=== PATIENT | female | born 1935 | race Caucasian/White ===

== ENCOUNTER 2017-07-08 06:35 | Inpatient (IN) | payer OTHER, MEDICARE ==
[2017-07-02 13:32] VITALS: BMI 28.2
--- NOTE | 2017-07-07 09:07 | HP ---
[facility] - Past Medical History Allergies/Adverse Reactions: Allergies Allergy/AdvReac Type Severity Reaction Status Date / Time Penicillins Allergy Rash Verified 07/02/17 13:39 Sulfa (Sulfonamide Allergy Rash Verified 07/02/17 13:39 Antibiotics) codeine AdvReac Vomiting Verified 07/02/17 13:39 - Current Medications Current Medications: Home Medications Medication Instructions Recorded Amlodipine Besylate 10 mg PO DAILY 07/02/17 Levothyroxine [Synthroid -] 100 mcg PO ASDIR 07/02/17 Montelukast Sodium [Singulair] 10 mg PO DAILY 07/02/17 Nebivolol HCl [Bystolic] 10 mg PO DAILY 07/02/17 Valsartan 160 mg PO DAILY 07/02/17
[2017-07-08] MEDS ORDERED: ePHEDrine SULFATE 50 MG/1 ML AMPULE ONE (06:39)
[2017-07-08] MEDS ORDERED: SUCCINYLCHOLINE CHLORIDE 200 MG/10 ML VIAL ONE (06:39)
[2017-07-08] MEDS ORDERED: ROCURONIUM BROMIDE 50 MG/5 ML VIAL ONE ×2 (06:39→09:54)
[2017-07-08] MEDS ORDERED: PHENYLEPHRINE HCL 10 MG/1 ML SINGLE DOSE VIAL ONE (06:40)
[2017-07-08] MEDS ORDERED: TRANEXAMIC ACID 1000 MG/10 ML VIAL IVPUSH ONE (06:56)
[2017-07-08] MEDS ORDERED: CEFAZOLIN 1 GM/D5W 1 GM/50 ML BAG IVPB ONE (06:56)
[2017-07-08] MEDS ORDERED: GABAPENTIN 300 MG CAPSULE (FP) PO ONE (06:56)
[2017-07-08] MEDS ORDERED: GABAPENTIN 300 MG CAPSULE (FP) ONE (07:22)
[2017-07-08] MEDS ORDERED: VANCOMYCIN 1,000 MG VIAL (RESTRICTED TO ID ONLY) ONE (07:38)
--- NOTE | 2017-07-08 08:03 | HP ---
Satellite [facility] - Chief Complaint Chief Complaint: right hip pain - Past Medical History Allergies/Adverse Reactions: Allergies Allergy/AdvReac Type Severity Reaction Status Date / Time Penicillins Allergy Rash Verified 07/02/17 13:39 Sulfa (Sulfonamide Allergy Rash Verified 07/02/17 13:39 Antibiotics) codeine AdvReac Vomiting Verified 07/02/17 13:39 - Current Medications Current Medications: Home Medications Medication Instructions Recorded Amlodipine Besylate 10 mg PO DAILY 07/02/17 Levothyroxine [Synthroid -] 100 mcg PO ASDIR 07/02/17 Montelukast Sodium [Singulair] 10 mg PO DAILY 07/02/17 Nebivolol HCl [Bystolic] 10 mg PO DAILY 07/02/17 Valsartan 160 mg PO DAILY 07/02/17 Satellite Physical Exam - Physical Examination Vital Signs: Vital Signs Period Temp Pulse Resp BP Sys/Gonzales Pulse Ox Last 24 Hr 98.3 F 78 18 138/72 General Appearance: Well Nourished, Well Developed, Alert & Oriented x3 ENT: Clear Lung: Normal air movement Heart: Regular rate & rhythm Extremities: Other (right hip - + ttp, dec rom, nvi xrays show grade 4 hip djd) Neurological: Intact, Alert, Oriented Satellite Impression/Plan - Impression/Plan Impression: right hip djd Operative Procedure: right chino thr Date to be Performed: 07/08/17
[2017-07-08] MEDS ORDERED: BUPIVACAINE HCL/PF (5 MG/ML) 30 ML VIAL IJ ONE (08:34)
[2017-07-08] MEDS ORDERED: MIDAZOLAM HCL 2 MG/2 ML SINGLE DOSE VIAL ONE (08:34)
[2017-07-08] MEDS ORDERED: DEXAMETHASONE SOD PHOSPHATE/PF 10 MG/ML SDV ONE (08:34)
[2017-07-08] MEDS ORDERED: PROPOFOL 20 ML ONE (09:35)
[2017-07-08] MEDS ORDERED: TRANEXAMIC ACID 1000 MG/10 ML VIAL ONE (09:36)
[2017-07-08] MEDS ORDERED: ONDANSETRON 4 MG/2 ML VIAL ONE (09:43)
[2017-07-08] MEDS ORDERED: DEXAMETHASONE SOD PHOSPHATE 4 MG/1 ML VIAL ONE (09:43)
[2017-07-08] MEDS ORDERED: ceFAZolin SODIUM 1 GM VIAL ONE ×2 (09:43→11:46)
[2017-07-08] MEDS ORDERED: SODIUM CHLORIDE 0.9% P/F 10 ML VIAL IJ ONE (09:43)
[2017-07-08] MEDS ORDERED: ONDANSETRON 4 MG/2 ML VIAL IVPUSH PRN ×2 (10:10→11:10)
[2017-07-08] MEDS ORDERED: LACTATED RINGERS SOLUTION 1,000 ML IV SCH ×3 (10:15→13:29)
[2017-07-08] MEDS ORDERED: VANCOMYCIN 1,000 MG VIAL (RESTRICTED TO ID ONLY) IVPB ONE (10:42)
[2017-07-08] MEDS ORDERED: NEOSTIGMINE METHYLSULFATE 0.5 MG/ML - 10 ML MDV ONE (10:47)
[2017-07-08] MEDS ORDERED: GLYCOPYRROLATE 0.2 MG/1 ML VIAL ONE (10:47)
[2017-07-08] MEDS ORDERED: MAGNESIUM HYDROX 2400MG/30ML ORAL SUSPENSION 30 ML CUP PO PRN (11:10)
[2017-07-08] MEDS ORDERED: MAG HYDROX/AL HYDROX/SIMETH 30 ML UNIT-DOSE CUP PO PRN (11:10)
--- NOTE | 2017-07-08 11:12 | OP ---
Operative Note - Note: Operative Date: 07/08/17 (magali) Pre-Operative Diagnosis: right hip djd Operation: right chino thr Post-Operative Diagnosis: Same as Pre-op Surgeon: Rishabh Sanchez Clay Pigeon Setter: Alberto Art Anesthesiologist/STATISTICS TEACHER: Akil Valiente Anesthesia: General, Spinal Specimens Removed: femoral head Estimated Blood Loss (mls): 200 Operative Report Dictated: Yes
[2017-07-08] MEDS: oxyCODONE HCL 5 MG TABLET PO PRN ×2 (11:50→14:06)
[2017-07-08] MEDS: ACETAMINOPHEN 325 MG TABLET (FP) PO SCH ×2 (11:50→18:03)
--- NOTE | 2017-07-08 13:58 | SPEC ---
DATE OF OPERATION: 07/08/2017 PREOPERATIVE DIAGNOSIS: Degenerative joint disease, right hip. POSTOPERATIVE DIAGNOSIS: Degenerative joint disease, right hip. PROCEDURE PERFORMED: Right total hip replacement with robotic-assisted navigation (MAKOplasty). SURGICAL ATTENDING: Rishabh Sanchez MD WOOD SETTER: LAURA Nolan ANESTHESIA: Regional and spinal. CLOSURE: A Adam total hip system with a 54 press-fit Tritanium acetabulum, an Accolade 2 size 8 femoral stem with a 036-mm head. ESTIMATED BLOOD LOSS: Less than 100 mL. COMPLICATIONS: None. CONDITION: To the recovery room in stable condition. DESCRIPTION OF PROCEDURE: The patient was taken to the operating room on July 08, 2017. General and regional anesthesia was administered by the anesthesiologist. IV Kefzol and TXA were administered prophylactically prior to the case. The patient was placed in the lateral decubitus position will all prominences well-padded. The right hip area was prepped and draped in the usual sterile fashion. Using 3 small stab incisions over the iliac crest, 3 threaded pins were drilled in power fashion through the 2 tables of the crest. These pins were fastened and the navigation array for the Constantin navigation system. Next, a 12 to 15-cm curved longitudinal incision over the posterolateral aspect of the greater trochanter was incised. Hemostasis was achieved with Bovie cautery. Sharp dissection was carried down to level of the fascia. The fascia was opened the entire length of the incision, spreading the fibers of the gluteus ian in the direction of origin. A Charnley retractor was placed in this layer. Care was taken not to impale the sciatic nerve. The short external rotators were detached off the insertion of the greater trochanter and peeled off the capsule. A posterior capsulotomy was then performed. A check point was malleted into the greater trochanter and a point on the inferior pole of the patella was obtained as well. These 2 points were used to assess the preoperative offset and limb lengths of the hip. The hip was then dislocated. The femoral neck was then osteotomized down to the appropriate level as directed by the navigation device. Anterior and posterior retractors were placed, exposing the acetabulum. A circumferential labral excision was performed. A check point was malleted into the acetabulum as well. Multiple sites inside the acetabulum and around the rim were utilized to register the acetabulum with the navigation device. An excellent registration of less than 0.5 mm was obtained. The hip was then reamed with the appropriate reamer down to the appropriate depth, with the appropriate orientation and version as assessed on our preoperative plan for this patient. The reamer was removed and the acetabulum was inspected to have good bleeding surfaces throughout. The real acetabular cup was then malleted down into place, with the holes in the appropriate position, until an excellent fixation was obtained. No screws were necessary. The navigation device ensured appropriate orientation and version, with the depth as predetermined. The appropriate liner was then clipped into place. Attention was directed to the femur. The proximal femur was prepared by use a box chisel, a canal finder and serial broaches until the broach achieved excellent rigidity in the proximal femur with the appropriate version being applied. A calcar planer was used to smooth off the calcar flush with the trial components. A trial reduction with the appropriate head was done, and the hip was reduced. The hip was taken through a range of motion from full extension with external rotation to marked flexion, and was stable at 90 degrees of flexion. It was stable to marked abduction and internal rotation, with a positive hang test and negative telescoping. Limb lengths were ascertained visually as well as with the navigation device to be within the targeted range for this patient. The trial component was removed. The real component was then malleted into place. The head was cold welded to the trunnion, and the hip was reduced. Range of motion, stability and limb lengths were as described in the trial component. Then the hip was pulse antibiotic irrigated. Vancomycin powder was placed in the hip joint. The capsule was closed. The fascia was then closed as well using number 1 Vicryl interrupted suture, 0 and 2-0 subcutaneous, and 3-0 V-Loc for the skin. 4-0 undyed Vicryl was used to close the pin sites after the pins were removed. All check points were also removed. Sterile Aquacel dressing was applied. The patient was awakened from anesthesia and transferred into the supine position. Bilateral SCDs and an abduction pillow were placed. X-rays revealed excellent position of the components. The patient was transferred to the recovery room in stable condition, with no complications. Estimated blood loss was less than 100 mL. Ziggy [id number]
[2017-07-08] MEDS: CEFAZOLIN 1 GM/D5W 1 GRAM/50 ML BAG IVPB SCH (18:03)
[2017-07-08] MEDS: GABAPENTIN 300 MG CAPSULE (FP) PO SCH (21:44)
[2017-07-08] MEDS: SENNOSIDES/DOCUSATE COMBO (SENNA PLUS) TABLET (UD) PO SCH (21:45)
[2017-07-09] MEDS: ACETAMINOPHEN 325 MG TABLET (FP) PO SCH ×4 (00:25→17:48)
[2017-07-09] MEDS: CEFAZOLIN 1 GM/D5W 1 GRAM/50 ML BAG IVPB SCH (01:23)
[2017-07-09] MEDS: oxyCODONE HCL 5 MG TABLET PO PRN ×3 (06:02→21:16)
[2017-07-09] MEDS: LEVOTHYROXINE NA 100 MCG TABLET (FP) PO SCH (06:02)
--- NOTE | 2017-07-09 07:45 | PN ---
Progress Note (short form) - Note Progress Note: Ortho Pt seen and examined s/p right chino thr pod #1 Selected Entries 07/09/17 05:04 Temperature 98.7 F Pulse Rate 75 Respiratory 20 Rate Blood Pressure 115/50 dressing c/d/i, calf soft, nt nvi cbc pending a/p PT hip precautions dvt ppx pain control d/c home tomorrow if stable
[2017-07-09 08:33] LABS: HEMATOCRIT 36.3 % (32.4-45.2); HEMOGLOBIN 11.9 GM/dl (10.7-15.3); MCH 28.8 pg (25.7-33.7); MCHC 32.6 g/dl (32.0-36.0); MEAN CELL VOLUME 88.2 fl (80-96); MEAN PLT VOLUME 9.8 fl (7.5-11.1); PLATELET COUNT 183 K/MM3 (134-434); RBC 4.12 M/mm3 (3.60-5.2); RDW 13.5 % (11.6-15.6); WHITE BLOOD COUNT 12.4 K/mm3 (4.0-10.8)
[2017-07-09] MEDS: ASPIRIN 325 MG TABLET PO SCH (08:51)
[2017-07-09] MEDS: PANTOPRAZOLE 40 MG TABLET (FP) PO SCH (09:42)
[2017-07-09] MEDS: VALSARTAN 160 MG TABLET (UD) PO SCH (09:42)
[2017-07-09] MEDS: MONTELUKAST NA 10 MG TABLET PO SCH (09:42)
[2017-07-09] MEDS: GABAPENTIN 300 MG CAPSULE (FP) PO SCH ×2 (09:42→21:15)
[2017-07-09] MEDS: NEBIVOLOL 10 MG TABLET (FP) PO SCH (09:43)
[2017-07-09] MEDS: MULTIVITAMINS (DAILY MVI) TABLET (FP) PO SCH (09:43)
[2017-07-09] MEDS: SENNOSIDES/DOCUSATE COMBO (SENNA PLUS) TABLET (UD) PO SCH ×2 (09:43→21:15)
[2017-07-09] MEDS: amLODIPine BESYLATE 10 MG TABLET (FP) PO SCH (09:43)
--- NOTE | 2017-07-09 12:07 | PN ---
Progress Note (short form) - Note Progress Note: 81F POD1 s/p right THR under spinal anesthetic with peripheral nerve blocks for post operative pain relief. Pt states that pain is well controlled, reports no anesthetic complications, sensory and motor function is intact in bilateral lower extremities.
[2017-07-10] MEDS: ACETAMINOPHEN 325 MG TABLET (FP) PO SCH ×3 (00:14→11:54)
[2017-07-10] MEDS: oxyCODONE HCL 5 MG TABLET PO PRN ×2 (03:51→09:54)
[2017-07-10] MEDS: LEVOTHYROXINE NA 100 MCG TABLET (FP) PO SCH (06:04)
[2017-07-10] MEDS ORDERED: ONDANSETRON 4 MG TABLET PO ONE (08:03)
--- NOTE | 2017-07-10 08:04 | DS ---
Physical Examination Vital Signs: Vital Signs Temperature 98.6 F 07/10/17 05:00 Pulse Rate 74 07/10/17 05:00 Respiratory Rate 19 07/10/17 05:00 Blood Pressure 174/80 07/10/17 05:00 O2 Sat by Pulse Oximetry (%) 98 07/09/17 21:00 Labs: CBC, BMP 07/09/17 08:20 Discharge Summary Reason For Visit: OSTEOARTHRITIS Procedures: Principal: s/p right thr Hospital Course: admitted for elective right chino thr, uneventful post-op, stable for d/c Condition: Good - Instructions Diet, Activity, Other Instructions: Post-op Instructions-Total Hip Replacement Call the office for a follow-up appointment in 1 week - [phone] Aspirin 325mg daily for 6 weeks. Pain medication was sent into your pharmacy. Apply Graduated Compression Stockings (TEDs) to both lower extremities- remove daily for hygiene ONLY Apply Sequential Compression Device (SCDs) to both Lower extremities remove for PT and hygiene ONLY Apply cold packs to affected area for 15 minutes every 2 hours. Physical Therapist will come to your home for the first 5 days. You will be set up with outpatient PT at your first post-operative visit. Patient may ambulate as tolerated-encourage self care (at least every 2-3 hours while awake) with walker or cane Maintain Aquacel (waterproof) dressing to operative wound (will be removed by surgeon at first office visit) Shower with Aquacel dressing in place-if Aquacel integrity compromised, remove and apply dry sterile dressing and notify Orthopedist. DO NOT SHOWER unless Orthopedists approves without Aquacel dressing CONTACT THE OFFICE FOR ANY CHANGE IN YOUR CONDITION (for example-fever greater than 102 degrees, excessive bleeding from operative site, purulent drainage, severe swelling or pain) GO TO THE EMERGENCY ROOM IF THERE IS A MEDICAL EMERGENCY Hip Precautions: * Keep a rolled towel under affected heel while in bed or chair (to keep knee in extension) * Dependent upon approach: * Posterior - do not cross legs; do not sit on low chairs or toilets. * If you have any questions, please do not hesitate to call the office - [phone]. Referrals: Rishabh Sanchez MD [Staff Physician] - Disposition: VNS/HOME HEALTH CARE - Home Medications Comprehensive Discharge Medication List: Ambulatory Orders Amlodipine Besylate 10 mg PO DAILY 07/02/17 Levothyroxine [Synthroid -] 100 mcg PO ASDIR 07/02/17 Montelukast Sodium [Singulair] 10 mg PO DAILY 07/02/17 Nebivolol HCl [Bystolic] 10 mg PO DAILY 07/02/17 Valsartan 160 mg PO DAILY 07/02/17 Aspirin [ASA -] 325 mg PO DAILY@0800 tablet 07/08/17 Oxycodone HCl/Acetaminophen [Percocet 5-325 mg Tablet] 1 - 2 tab PO Q6H #50 tab MDD 8 07/08/17
--- NOTE | 2017-07-10 08:04 | PN ---
Progress Note (short form) - Note Progress Note: Ortho Pt seen and examined s/p right chino thr pod #2 Selected Entries 07/10/17 05:00 Temperature 98.6 F Pulse Rate 74 Respiratory 19 Rate Blood Pressure 174/80 Laboratory Tests 07/09/17 08:20 WBC 12.4 H Hgb 11.9 Hct 36.3 Plt Count 183 dressing c/d/i, calf soft, nt nvi a/p PT hip precautions dvt ppx pain control d/c home today f/u in 1 week
[2017-07-10 08:47] LABS: HEMATOCRIT 33.9 % (32.4-45.2); HEMOGLOBIN 11.6 GM/dl (10.7-15.3); MCH 30.2 pg (25.7-33.7); MCHC 34.2 g/dl (32.0-36.0); MEAN CELL VOLUME 88.5 fl (80-96); MEAN PLT VOLUME 9.7 fl (7.5-11.1); PLATELET COUNT 149 K/MM3 (134-434); RBC 3.83 M/mm3 (3.60-5.2); RDW 13.8 % (11.6-15.6); WHITE BLOOD COUNT 10.6 K/mm3 (4.0-10.8)
[2017-07-10] MEDS: ASPIRIN 325 MG TABLET PO SCH (08:54)
[2017-07-10 09:23] VITALS: TEMP 98.1
[2017-07-10] MEDS: SENNOSIDES/DOCUSATE COMBO (SENNA PLUS) TABLET (UD) PO SCH (09:46)
[2017-07-10] MEDS: MULTIVITAMINS (DAILY MVI) TABLET (FP) PO SCH (09:46)
[2017-07-10] MEDS: MONTELUKAST NA 10 MG TABLET PO SCH (09:46)
[2017-07-10] MEDS: PANTOPRAZOLE 40 MG TABLET (FP) PO SCH (09:46)
[2017-07-10] MEDS: GABAPENTIN 300 MG CAPSULE (FP) PO SCH (09:47)
[2017-07-10 11:54] VITALS: BP 105/45; PULSE 65
[2017-07-10] MEDS: NEBIVOLOL 10 MG TABLET (FP) PO SCH (11:54)
[2017-07-10] MEDS: VALSARTAN 160 MG TABLET (UD) PO SCH (11:54)
[2017-07-10] MEDS: amLODIPine BESYLATE 10 MG TABLET (FP) PO SCH (11:55)
--- NOTE | 2017-07-15 16:28 | PATH ---
Surgical Pathology Report Patient Name: JITENDRA JIMENEZ Med. Rec. #: [id number] /Age/Gender: 1935 (Age: 81) / F Account: [id number] Location: [facility] Taken: 07/08/2017 Received: 07/08/2017 Reported: 07/15/2017 Physicians: Rishabh Sanchez M.D. Specimen(s) Received RIGHT FEMORAL HEAD Clinical History Right hip osteoarthritis Final Diagnosis FEMORAL HEAD, RIGHT, TOTAL HIP REPLACEMENT: DEGENERATIVE JOINT DISEASE. Electronically Signed Karli Baker M.D. Gross Description Received in formalin, labeled "right femoral head," is a 4.6 x 4.6 x 4.3 cm. femoral head with a 1.5 cm in length portion of femoral neck attached. The margin of resection is smooth. There is a 4.1 cm in greatest dimension area of eburnation present. The remaining articular surface is luna-yellow and diffusely granular. The underlying trabecular bone is yellow and hard. A sales representative electric service section is submitted in one cassette, following decalcification. /07/09/2017 merged with [facility]07/09/2017
== END 2017-07-10 15:00 | disposition home health service (06) | DRG 470 ==
LOC: FM/S 06:35
PROVIDERS: ADMIT Orthopaedic Surgery; ATTEND Orthopaedic Surgery
PROC: 8E0Y0CZ Robotic Assisted Procedure of Lower Extremity, Open Approach (ICD-10-PCS; 2017-07-08)
PROC: 0SR902Z Replacement of Right Hip Joint with Metal on Polyethylene Synthetic Substitute, Open Approach (ICD-10-PCS; principal; 2017-07-08 09:30)
DX: M16.11 Unilateral primary osteoarthritis, right hip (principal); I10 Essential (primary) hypertension
CPT/HCPCS: 36415; 73502-TC-RT; 85027; 94010; 94760; 97116-GP; 97162-GP

== ENCOUNTER 2017-07-15 13:12 | Inpatient (IN) | payer OTHER, MEDICARE ==
[2017-07-15] MEDS ORDERED: morphine CARPU-JECT 4 MG/1 ML DISP.SYRIN IVPUSH ONE ×4 (13:51→19:02)
[2017-07-15] MEDS ORDERED: SODIUM CHLORIDE 0.9% 1000 ML INFUS.BAG IV ONE (13:51)
[2017-07-15] MEDS ORDERED: morphine CARPU-JECT 2 MG/1 ML DISP.SYRIN ONE ×3 (14:03→16:54)
--- NOTE | 2017-07-15 14:19 | PDOC ---
Attending Attestation - Resident Resident Name: PablojonathonNaeem - ED Attending Attestation I have performed the following: I have examined & evaluated the patient, The case was reviewed & discussed with the resident, I agree w/resident's findings & plan, Exceptions are as noted - HPI HPI: 07/15/17 14:16 81-year-old female postop day 7 right hip replacement secondary to arthritis, uncomplicated and with good postop recovery initially now sent to ED for progressive pain and decreased range of motion of her right hip is going home about 5 days ago. No fevers or chills, no new injuries, has noticed bruising to the right leg but no redness or pus. Taking Percocet as prescribed for pain. - Physicial Exam PE: 07/15/17 14:17 Afebrile. Well-appearing and hemodynamically stable. Abdomen is benign Right hip: Surgical incision sites are clean/dry/intact without drainage or erythema or dehiscence. There is bruising and soft tissue swelling to the right leg that extends to the right knee, there is very limited active or passive range of motion secondary to pain, neurovascularly intact distally. - Medical Decision Making 07/15/17 14:18 Patient seen and evaluated with the resident. I agree with the overall evaluation, assessment, and management with the following summary of visit: 81-year-old female with worsening right hip pain and immobility following right hip surgery one week ago. Question bleed versus collection plus or minus infection. Labs X-ray, right lower extremity Doppler Likely will need CT head Dr. Sanchez aware, admission
[2017-07-15 14:52] LABS: BASO % 0.7 % (0-2.0); EOS % 0.3 % (0-4.5); HEMATOCRIT 35.7 % (32.4-45.2); HEMOGLOBIN 11.9 GM/dl (10.7-15.3); LYMPH % 11.1 % (8-40); MCH 28.9 pg (25.7-33.7); MCHC 33.2 g/dl (32.0-36.0); MEAN PLT VOLUME 8.6 fl (7.5-11.1); MONO % 7.1 % (3.8-10.2); NEUT % 80.8 % (42.8-82.8); PLATELET COUNT 272 K/MM3 (134-434); RDW 13.5 % (11.6-15.6); WHITE BLOOD COUNT 12.3 K/mm3 (4.0-10.8)
--- NOTE | 2017-07-15 14:58 | PDOC ---
History of Present Illness <Noemi Ramirez - Last Filed: 07/15/17 15:28> - General History Source: Patient, Family Exam Limitations: No Limitations - History of Present Illness Initial Comments: 07/15/17 14:20 The patient is an 81F with a PMH of HTN who is s/p R total hip replacement who presents with R hip pain. The patient states that she had her operation on Jul 08. She was discharged on the and felt great. On the , she began to have mild R hip pain. She says that this hip pain has progressed until her presentation today and is now radiating to her knee. She states that she is no longer able to ambulate and cannot move her R leg. She is also complaining of bruising on the back of her R knee. She denies any complaints of fevers, chills, CP, SOB. <Naeem Bernal - Last Filed: 07/15/17 17:36> - General Chief Complaint: Pain Stated Complaint: RT HIP PAIN S/P SURGERY Time Seen by Provider: 07/15/17 13:30 Past History <Noemi Ramirez - Last Filed: 07/15/17 15:28> - Past Medical History Anemia: No Asthma: (TAKING SINGULAIR FOR YEARS R/T ALLERGIC COUGH,NO ASTHMA DX) Cancer: No Cardiac Disorders: Yes (murmur) CVA: No COPD: No CHF: No Dementia: No Diabetes: No GI Disorders: No Disorders: No HTN: Yes Hypercholesterolemia: No Liver Disease: No Seizures: No Thyroid Disease: Yes - Surgical History Abdominal Surgery: No Appendectomy: No Cardiac Surgery: No Cholecystectomy: No Lung Surgery: No Neurologic Surgery: No Orthopedic Surgery: No - Suicide/Smoking/Psychosocial Hx Smoking History: Unknown if ever smoked Hx Alcohol Use: No Drug/Substance Use Hx: No <Naeem Bernal - Last Filed: 07/15/17 17:36> - Past Medical History Allergies/Adverse Reactions: Allergies Allergy/AdvReac Type Severity Reaction Status Date / Time Penicillins Allergy Rash Verified 07/02/17 13:39 Sulfa (Sulfonamide Allergy Rash Verified 07/02/17 13:39 Antibiotics) codeine AdvReac Vomiting Verified 07/02/17 13:39 Home Medications: Ambulatory Orders Amlodipine Besylate 10 mg PO DAILY 07/02/17 Levothyroxine [Synthroid -] 100 mcg PO ASDIR 07/02/17 Montelukast Sodium [Singulair] 10 mg PO DAILY 07/02/17 Nebivolol HCl [Bystolic] 10 mg PO DAILY 07/02/17 Valsartan 160 mg PO DAILY 07/02/17 Aspirin [ASA -] 325 mg PO DAILY@0800 tablet 07/08/17 Oxycodone HCl/Acetaminophen [Percocet 5-325 mg Tablet] 1 - 2 tab PO Q6H #50 tab MDD 8 07/08/17 Review of Systems - Review of Systems Able to Perform ROS?: Yes Comments:: 07/15/17 15:09 GENERAL/CONSTITUTIONAL: No fever or chills. No weakness. HEAD, EYES, EARS, NOSE AND THROAT: No change in vision. No ear pain or discharge. No sore throat. CARDIOVASCULAR: No chest pain, palpitations, or lightheadedness. RESPIRATORY: No cough, wheezing, shortness of breath, or hemoptysis. GASTROINTESTINAL: No nausea, vomiting, diarrhea, constipation, or abdominal pain. GENITOURINARY: No dysuria, frequency, hematuria, or change in urination. MUSCULOSKELETAL: Positive for R hip pain. No neck or back pain. SKIN: No rash or lesions. NEUROLOGIC: No headache, numbness, tingling, weakness, loss of consciousness, or change in strength/sensation. ENDOCRINE: No increased thirst. No abnormal weight change. HEMATOLOGIC/LYMPHATIC: No anemia, easy bleeding, or history of blood clots. ALLERGIC/IMMUNOLOGIC: No hives or skin allergy. Is the patient limited Urdu proficient: No <Naeem Bernal - Last Filed: 07/15/17 17:36> *Physical Exam - Vital Signs Last Vital Signs Temp Pulse Resp BP Pulse Ox 97.8 F 71 18 160/87 96 07/15/17 13:12 07/15/17 13:12 07/15/17 13:12 07/15/17 13:12 07/15/17 13:12 <Noemi Ramirez - Last Filed: 07/15/17 15:28> - Vital Signs Last Vital Signs Temp Pulse Resp BP Pulse Ox 97.8 F 71 18 160/87 96 07/15/17 13:12 07/15/17 13:12 07/15/17 13:12 07/15/17 13:12 07/15/17 13:12 - Physical Exam Comments: 07/15/17 15:10 GENERAL: Well developed, well nourished. Awake and alert. No acute distress. HEENT: Normocephalic, atraumatic. Hearing grossly normal. Moist mucous membranes. PERRLA, EOMI. No conjunctival pallor. Sclera are non-icteric. NECK: Supple. Full ROM. No JVD. CARDIOVASCULAR: Regular rate and rhythm. No murmurs, rubs, or gallops. Distal pulses are 2+ and symmetric. PULMONARY: No evidence of respiratory distress. Lungs clear to auscultation bilaterally. No wheezing, rales or rhonchi. ABDOMINAL: Soft. Non-tender. Non-distended. No rebound or guarding. No organomegaly. Normoactive bowel sounds. MUSCULOSKELETAL: Limited active and passive ROM in R hip. No tenderness to palpation. Bruising over posterior R knee. No bony deformities or tenderness. EXTREMITIES: No cyanosis. No clubbing. No edema. No calf tenderness. SKIN: Warm and dry. Normal capillary refill. No rashes. No jaundice. NEUROLOGICAL: Alert, awake, appropriate. Cranial nerves 2-12 intact. Normal speech. PSYCHIATRIC: Cooperative. Good eye contact. Appropriate mood and affect. <Naeem Bernal - Last Filed: 07/15/17 17:36> ED Treatment Course - LABORATORY CBC & Chemistry Diagram: 07/15/17 14:30 07/15/17 14:30 - ADDITIONAL ORDERS Additional order review: Laboratory Results 07/15/17 14:30 PT with INR 12.4 INR 1.11 07/15/17 14:30 RBC 4.10 MCV 87.0 MCHC 33.2 RDW 13.5 MPV 8.6 Neutrophils % 80.8 Lymphocytes % 11.1 Monocytes % 7.1 Eosinophils % 0.3 Basophils % 0.7 - RADIOLOGY Radiograph Interpretation: 07/15/17 15:28 RLE Dopper venous US Impression: There is no evidence of deep vein thromboses in the right lower extremity. Note is made of calcified plaques in the right common femoral and likely proximal superficial femoral vein. Soft tissue swelling in the right leg. Reported by: Nieves Agrawal MD 07/15/17 1511 - Medications Given in the ED: ED Medications Discontinued Medications Generic Name Dose Route Start Last Admin Trade Name Freq PRN Reason Stop Dose Admin Morphine Sulfate 2 mg 07/15/17 13:51 07/15/17 14:08 Morphine Injection - IVPUSH 07/15/17 13:52 2 mg ONCE ONE Administration Sodium Chloride 1,000 ml 07/15/17 13:51 07/15/17 14:15 Normal Saline - IV 07/15/17 13:52 1,000 ml ONCE ONE Administration <Noemi Ramirez - Last Filed: 07/15/17 15:28> - LABORATORY CBC & Chemistry Diagram: 07/15/17 14:30 07/15/17 14:30 - RADIOLOGY Radiology Studies Ordered: Category Date Time Status HIP & PELVIS-RIGHT [RAD] Stat Radiology 07/15/17 13:45 Ordered - Medications Given in the ED: ED Medications Discontinued Medications Generic Name Dose Route Start Last Admin Trade Name Freq PRN Reason Stop Dose Admin Morphine Sulfate 2 mg 07/15/17 13:51 07/15/17 14:08 Morphine Injection - IVPUSH 07/15/17 13:52 2 mg ONCE ONE Administration <Naeem Bernal - Last Filed: 07/15/17 17:36> Medical Decision Making - Medical Decision Making 07/15/17 15:11 The patient is an 81F with a PMH of HTN who is s/p R total hip who presents to the ER with complaints of R knee pain. I am concerned for a hematoma in the R hip area. The area does not look infected, the surgical site looks clean, and the patient is not complaining about any fevers or chills so I have a lower index of suspicion for an infectious process. Will order labs and imaging and reassess patient. 07/15/17 15:23 US Read: There is no evidence of deep venous thromboses in the right lower extremity. Note is made of calcified plaques in the right common femoral and likely proximal superficial femoral vein. Soft tissue swelling in the right leg. Pending CMP and XR. 07/15/17 16:33 CMP WNL. Hip XR negative. I have informed Alberto SANCHEZ (Dr. Sanchez) of results. Cell is [phone]. Wants admission with consultation. 07/15/17 17:36 Jonatan CELLOPHANER accepts admission under Dr. Mcmillan. <Naeem Bernal - Last Filed: 07/15/17 17:36> *DC/Admit/Observation/Transfer <Noemi Ramirez - Last Filed: 07/15/17 15:28> - Discharge Dispostion Admit: Yes <Naeem Bernal - Last Filed: 07/15/17 17:36> Diagnosis at time of Disposition: Hip pain Qualifiers: Laterality: right Qualified Code(s): M25.551 - Pain in right hip - Discharge Dispostion Condition at time of disposition: Stable
[2017-07-15 15:23] LABS: INR 1.11 (0.82-1.09); PROTHROMBIN TIME (PATIENT) 12.4 SEC (10.2-13.0)
[2017-07-15 15:27] LABS: ALBUMIN 2.9 g/dl (3.5-5.0); ALK PHOS 67 U/L (32-92); ANION GAP 11 (8-16); BILIRUBIN,TOTAL 0.7 mg/dl (0.2-1.0); BLOOD UREA NITROGEN 14 mg/dl (7-18); CALCIUM 8.7 mg/dl (8.4-10.2); CHLORIDE 97 mmol/L (98-107); CO2 28 mmol/L (22-28); CREATININE 0.7 mg/dl (0.6-1.3); GLUCOSE,RANDOM 104 mg/dl (74-106); POTASSIUM 3.7 mmol/L (3.5-5.1); SGOT/AST 29 U/L (10-42); SGPT/ALT 32 U/L (10-40); SODIUM 136 mmol/L (136-145); TOT PROT 5.9 g/dl (6.4-8.3)
--- NOTE | 2017-07-15 18:42 | CON.ORTH ---
Consult Reason for Consultation:: right hip pain s/p thr - Alcohol/Substance Use Hx Alcohol Use: No - Smoking History Smoking history: Unknown if ever smoked Home Medications - Allergies Allergies/Adverse Reactions: Allergies Allergy/AdvReac Type Severity Reaction Status Date / Time Penicillins Allergy Rash Verified 07/02/17 13:39 Sulfa (Sulfonamide Allergy Rash Verified 07/02/17 13:39 Antibiotics) codeine AdvReac Vomiting Verified 07/02/17 13:39 - Home Medications Home Medications: Ambulatory Orders Amlodipine Besylate 10 mg PO DAILY 07/02/17 Levothyroxine [Synthroid -] 100 mcg PO ASDIR 07/02/17 Montelukast Sodium [Singulair] 10 mg PO DAILY 07/02/17 Nebivolol HCl [Bystolic] 10 mg PO DAILY 07/02/17 Valsartan 160 mg PO DAILY 07/02/17 Aspirin [ASA -] 325 mg PO DAILY@0800 tablet 07/08/17 Oxycodone HCl/Acetaminophen [Percocet 5-325 mg Tablet] 1 - 2 tab PO Q6H #50 tab MDD 8 07/08/17 Physical Exam for Ortho Vital Signs: Vital Signs Temperature 97.8 F 07/15/17 13:12 Pulse Rate 71 07/15/17 13:12 Respiratory Rate 18 07/15/17 13:12 Blood Pressure 160/87 07/15/17 13:12 O2 Sat by Pulse Oximetry (%) 96 07/15/17 13:12 Wound/Incision: Yes: Clean/Dry, Well Approximated Labs: CBC, BMP 07/15/17 14:30 07/15/17 14:30 INR, PTT INR 1.11 (0.82-1.09) 07/15/17 14:30 - Lower Extremity Hip: Yes: Right, Decreased ROM, Pain, Swelling, Other (nvi) Imaging - Results X-ray: Report Reviewed, Image Reviewed Cat Scan: Report Reviewed, Image Reviewed Assessment/Plan 81F with a PMH of HTN who is s/p R total hip replacement who presents with R hip pain. The patient states that she had her operation on Jul 08. She was discharged on the and felt great. On the , she began to have mild R hip pain. She says that this hip pain has progressed until her presentation today and is now radiating to her knee. She states that she is no longer able to ambulate and cannot move her R leg. She is also complaining of bruising on the back of her R knee. She denies any complaints of fevers, chills, CP, SOB. a/p- right periprosthetic proximal femur fx Risks and benefits were d/w pt and daughters will need to be taken to OR for orif d/w Dr. Sanchez OR Friday NPO after midnight on hold ASA
[2017-07-15] MEDS ORDERED: morphine SULFATE 4 MG/ML VIAL ONE (19:02)
--- NOTE | 2017-07-15 20:00 | HP ---
CHIEF COMPLAINT: Right Hip Pain PCP: HISTORY OF PRESENT ILLNESS: This is a 81 y/o woman s/p right hip replacement (07/08/17). Who presents to the ED with right hip pain, non weight bearing. Patient reports since her surgery on 07/08, d/cd on 07/10. Patient reports having increased pain to her hip on 07/11 and it became progressively worse. She now reports being unable to ambulate and increased swelling to her right leg. ER course was notable for: (1) WBC 12.3 (2) Doppler RLE- neg DVT (3) Recent Travel: None PAST MEDICAL HISTORY: HTN Hypothyroid PAST SURGICAL HISTORY: s/p R- Hip Replacement Social History: Smoking: Never Alcohol: None Drugs: None Family History: Non-contributory Allergies Penicillins Allergy (Verified 07/02/17 13:39) Rash Sulfa (Sulfonamide Antibiotics) Allergy (Verified 07/02/17 13:39) Rash codeine Adverse Reaction (Verified 07/02/17 13:39) Vomiting HOME MEDICATIONS: Home Medications Medication Instructions Recorded Amlodipine Besylate 10 mg PO DAILY 07/02/17 Levothyroxine [Synthroid -] 100 mcg PO ASDIR 07/02/17 Montelukast Sodium [Singulair] 10 mg PO DAILY 07/02/17 Nebivolol HCl [Bystolic] 10 mg PO DAILY 07/02/17 Valsartan 160 mg PO DAILY 07/02/17 Aspirin [ASA -] 325 mg PO DAILY@0800 tablet 07/08/17 Oxycodone HCl/Acetaminophen 1 - 2 tab PO Q6H #50 tab MDD 8 07/08/17 [Percocet 5-325 mg Tablet] REVIEW OF SYSTEMS CONSTITUTIONAL: Absent: fever, chills, diaphoresis, generalized weakness, malaise, loss of appetite, weight change HEENT: Absent: rhinorrhea, nasal congestion, throat pain, throat swelling, difficulty swallowing, mouth swelling, ear pain, eye pain, visual changes CARDIOVASCULAR: Absent: chest pain, syncope, palpitations, irregular heart rate, lightheadedness , peripheral edema RESPIRATORY: Absent: cough, shortness of breath, dyspnea with exertion, orthopnea, wheezing, stridor, hemoptysis GASTROINTESTINAL: Absent: abdominal pain, abdominal distension, nausea, vomiting, diarrhea, constipation, melena, hematochezia GENITOURINARY: Absent: dysuria, frequency, urgency, hesitancy, hematuria, flank pain, genital pain MUSCULOSKELETAL: arthralgia, joint swelling, right knee pain Absent: myalgia, back pain, neck pain SKIN: Absent: rash, itching, pallor HEMATOLOGIC/IMMUNOLOGIC: Absent: easy bleeding, easy bruising, lymphadenopathy, frequent infections ENDOCRINE: Absent: unexplained weight gain, unexplained weight loss, heat intolerance, cold intolerance NEUROLOGIC: Absent: headache, focal weakness or paresthesias, dizziness, unsteady gait, seizure, mental status changes, bladder or bowel incontinence PSYCHIATRIC: Absent: anxiety, depression, suicidal or homicidal ideation, hallucinations. PHYSICAL EXAMINATION Vital Signs - 24 hr 07/15/17 13:12 Temperature 97.8 F Pulse Rate 71 Respiratory 18 Rate Blood Pressure 160/87 O2 Sat by Pulse 96 Oximetry (%) GENERAL: Awake, alert, and fully oriented, in no acute distress. HEAD: Normal with no signs of trauma. EYES: Pupils equal, round and reactive to light, extraocular movements intact, sclera anicteric, conjunctiva clear. No lid lag. EARS, NOSE, THROAT: Ears normal, nares patent, oropharynx clear without exudates. Moist mucous membranes. NECK: Normal range of motion, supple without lymphadenopathy, JVD, or masses. LUNGS: Breath sounds equal, clear to auscultation bilaterally. No wheezes, and no crackles. No accessory muscle use. HEART: Regular rate and rhythm, normal S1 and S2 without murmur, rub or gallop. ABDOMEN: Soft, nontender, not distended, normoactive bowel sounds, no guarding, no rebound, no masses. No hepatomegaly or splenomegaly. MUSCULOSKELETAL: Normal range of motion at all joints. No bony deformities. R- hip tenderness. No CVA tenderness. UPPER EXTREMITIES: 2+ pulses, warm, well-perfused. No cyanosis. No clubbing. No peripheral edema. LOWER EXTREMITIES: 2+ pulses, warm, well-perfused. No calf tenderness. No peripheral edema. NEUROLOGICAL: Cranial nerves II-XII intact. Normal speech. Gait not observed. PSYCHIATRIC: Cooperative. Good eye contact. Appropriate mood and affect. SKIN: Warm, dry, normal turgor, no rashes or lesions noted, normal capillary refill. Laboratory Results - last 24 hr 07/15/17 07/15/17 07/15/17 13:50 14:30 14:30 WBC 12.3 H RBC 4.10 Hgb 11.9 Hct 35.7 MCV 87.0 MCH 28.9 MCHC 33.2 RDW 13.5 Plt Count 272 MPV 8.6 Neutrophils % 80.8 Lymphocytes % 11.1 Monocytes % 7.1 Eosinophils % 0.3 Basophils % 0.7 PT with INR INR PTT (Actin FS) 23.7 L Sodium 136 Potassium 3.7 Chloride 97 L Carbon Dioxide 28 Anion Gap 11 BUN 14 Creatinine 0.7 Creat Clearance w eGFR > 60 Random Glucose 104 Calcium 8.7 Total Bilirubin 0.7 AST 29 ALT 32 Alkaline Phosphatase 67 Creatine Kinase Troponin I Total Protein 5.9 L Albumin 2.9 L Blood Type Antibody Screen 07/15/17 07/15/17 07/15/17 14:30 14:30 14:30 WBC RBC Hgb Hct MCV MCH MCHC RDW Plt Count MPV Neutrophils % Lymphocytes % Monocytes % Eosinophils % Basophils % PT with INR 12.4 INR 1.11 PTT (Actin FS) Sodium Potassium Chloride Carbon Dioxide Anion Gap BUN Creatinine Creat Clearance w eGFR Random Glucose Calcium Total Bilirubin AST ALT Alkaline Phosphatase Creatine Kinase 54 Troponin I < 0.02 Total Protein Albumin Blood Type A POSITIVE Antibody Screen Negative ASSESSMENT/PLAN: 81 y/o woman with a PMHx of: HTN, Hypothyroid, s/p R- hip replacement Admitted to [facility] for R- Hip Pain Plan: 1. R- Hip Pain - s/p R-THR - Ortho following- OR on Friday for ORIF - CT Hip- - Morphine Sulfate prn - Bedrest - Hold Asa secondary to pending surgery - NPO after midnight - SCDs - Monitor vitals 2. Leukocytosis - Likely secondary to stress (recent surgery) vs inflammation (right knee swelling) - Monitor CBC - Monitor vitals 3. Hypertension - Controlled - Monitor BP - Continue Norvasc, Bystolic, Valsartan - Monitor renal function 4. Hypothyroid - Continue Levothyroxine - TSH in am 5. FEN - PO Fluids - Replete lytes prn - Low Na diet 6. 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 - New Patient This patient is new to me today: Yes Date on this admission: 07/15/17 - Critical Care Critical Care patient: No
[2017-07-15 21:22] VITALS: BMI 31.4
[2017-07-15] MEDS: MONTELUKAST NA 10 MG TABLET PO SCH (22:19)
[2017-07-15] MEDS: DOCUSATE SODIUM 100 MG CAPSULE (FP) PO SCH (22:23)
[2017-07-15] MEDS: morphine CARPU-JECT 2 MG/1 ML DISP.SYRIN IVPUSH PRN (22:28)
[2017-07-16] MEDS: LEVOTHYROXINE NA 100 MCG TABLET (FP) PO SCH (06:29)
[2017-07-16 08:53] LABS: BASO % 0.2 % (0-2.0); EOS % 0.4 % (0-4.5); HEMATOCRIT 32.9 % (32.4-45.2); HEMOGLOBIN 10.8 GM/dl (10.7-15.3); LYMPH % 11.3 % (8-40); MCH 28.8 pg (25.7-33.7); MCHC 32.7 g/dl (32.0-36.0); MEAN CELL VOLUME 88.1 fl (80-96); MEAN PLT VOLUME 8.4 fl (7.5-11.1); MONO % 9.1 % (3.8-10.2); PLATELET COUNT 289 K/MM3 (134-434); RBC 3.73 M/mm3 (3.60-5.2); RDW 13.4 % (11.6-15.6); WHITE BLOOD COUNT 11.4 K/mm3 (4.0-10.8)
--- NOTE | 2017-07-16 10:14 | PN ---
Physical Exam: SUBJECTIVE: Patient seen and examined, reports pain to right lower extremity OBJECTIVE: patient is a 81 y/o female, with a past medical history of HTN, Hypothyroid, s/p right THR 07/08/17, admitted from the emergency department for righ acetabular fracture. Vital Signs Period Temp Pulse Resp BP Sys/Gonzales Pulse Ox Last 24 Hr 97.8 F-99.6 F 71-97 16-19 143-160/63-87 95-96 GENERAL: The patient is awake, alert, and fully oriented, in no acute distress. HEAD: Normal with no signs of trauma. EYES: PERRL, extraocular movements intact, sclera anicteric, cataract to left eye, conjunctiva clear. No ptosis. ENT: Ears normal, nares patent, oropharynx clear without exudates, moist mucous membranes. NECK: Trachea midline, full range of motion, supple. LUNGS: Breath sounds equal, clear to auscultation bilaterally, no wheezes, no crackles, no accessory muscle use. HEART: Regular rate and rhythm, S1, S2 without murmur, rub or gallop. ABDOMEN: Soft, nontender, nondistended, normoactive bowel sounds, no guarding, no rebound, no hepatosplenomegaly, no masses. EXTREMITIES: 2+ pulses, warm, well-perfused, no edema. RIGHT LOWER EXTREMITY: point tenderness to the right anterior hip, less than 3 second capillary refill, +3 pedal pulse NEUROLOGICAL: Cranial nerves II through XII grossly intact. Normal speech, gait not observed. PSYCH: Normal mood, normal affect. SKIN: Warm, dry, normal turgor, no rashes or lesions noted Laboratory Results - last 24 hr 07/15/17 07/15/17 07/15/17 13:50 14:30 14:30 WBC 12.3 H RBC 4.10 Hgb 11.9 Hct 35.7 MCV 87.0 MCH 28.9 MCHC 33.2 RDW 13.5 Plt Count 272 MPV 8.6 Neutrophils % 80.8 Lymphocytes % 11.1 Monocytes % 7.1 Eosinophils % 0.3 Basophils % 0.7 PT with INR INR PTT (Actin FS) 23.7 L Sodium 136 Potassium 3.7 Chloride 97 L Carbon Dioxide 28 Anion Gap 11 BUN 14 Creatinine 0.7 Creat Clearance w eGFR > 60 Random Glucose 104 Calcium 8.7 Total Bilirubin 0.7 AST 29 ALT 32 Alkaline Phosphatase 67 Creatine Kinase Troponin I Total Protein 5.9 L Albumin 2.9 L Blood Type Antibody Screen 07/15/17 07/15/17 07/15/17 14:30 14:30 14:30 WBC RBC Hgb Hct MCV MCH MCHC RDW Plt Count MPV Neutrophils % Lymphocytes % Monocytes % Eosinophils % Basophils % PT with INR 12.4 INR 1.11 PTT (Actin FS) Sodium Potassium Chloride Carbon Dioxide Anion Gap BUN Creatinine Creat Clearance w eGFR Random Glucose Calcium Total Bilirubin AST ALT Alkaline Phosphatase Creatine Kinase 54 Troponin I < 0.02 Total Protein Albumin Blood Type A POSITIVE Antibody Screen Negative 07/16/17 07:37 WBC 11.4 H RBC 3.73 Hgb 10.8 Hct 32.9 MCV 88.1 MCH 28.8 MCHC 32.7 RDW 13.4 Plt Count 289 MPV 8.4 Neutrophils % 79.0 Lymphocytes % 11.3 Monocytes % 9.1 Eosinophils % 0.4 Basophils % 0.2 PT with INR INR PTT (Actin FS) Sodium Potassium Chloride Carbon Dioxide Anion Gap BUN Creatinine Creat Clearance w eGFR Random Glucose Calcium Total Bilirubin AST ALT Alkaline Phosphatase Creatine Kinase Troponin I Total Protein Albumin Blood Type Antibody Screen Active Medications Generic Name Dose Route Start Last Admin Trade Name Freq PRN Reason Stop Dose Admin Amlodipine Besylate 10 mg 07/16/17 10:00 Norvasc - PO DAILY [facility] Docusate Sodium 100 mg 07/15/17 22:00 07/15/17 22:23 Colace - PO 100 mg BID DHEERAJ Administration Levothyroxine Sodium 100 mcg 07/16/17 07:00 07/16/17 06:29 Synthroid - PO 100 mcg DAILY@0700 [facility] Administration Montelukast Sodium 10 mg 07/15/17 22:00 07/15/17 22:19 Singulair - PO Not Given HS [facility] Morphine Sulfate 2 mg 07/15/17 19:40 07/15/17 22:28 Morphine Injection - IVPUSH 2 mg Q4H PRN Administration PAIN LEVEL 6-10 Nebivolol 10 mg 07/16/17 10:00 Bystolic - PO DAILY [facility] Valsartan 160 mg 07/16/17 10:00 Diovan - PO DAILY [facility] IMAGING ct of lower extremity: intact hardware, periprosthetic complete fractures in the posterior wall of the right acetabulum with no displacement, mildly displaced fracture through the right femoral diaphysiis ASSESSMENT/PLAN: 1.MS right hui-prosthetic fracture - pending OR tomm - Dr Sanchez consulted and following - neurovascular checks, incentive spirometer 2. ID Leukocytosis - Likely secondary to stress (recent surgery) vs inflammation - Monitor CBC - Monitor vitals 3. cardiovascular Hypertension - above goal, secondary to pain, Monitor BP - Continue Norvasc, Bystolic, Valsartan - Monitor renal function 4. end Hypothyroid - Continue Levothyroxine - pending tsh 5. FEN - PO Fluids--npo after mn - Replete lytes prn - Low Na diet 6. DVT Prophylaxis - SCDs - Hold AC secondary to pending surgery Code Status: Full Code Dispo: Requires Inpatient Care Visit type - Emergency Visit Emergency Visit: Yes ED Registration Date: 07/15/17 Care time: The patient presented to the Emergency Department on the above date and was hospitalized for further evaluation of their emergent condition. - New Patient This patient is new to me today: Yes Date on this admission: 07/16/17 - Critical Care Critical Care patient: No - Discharge Referral Referred to [facility] Med P.C.: No
[2017-07-16] MEDS: morphine CARPU-JECT 2 MG/1 ML DISP.SYRIN IVPUSH PRN (10:17)
[2017-07-16] MEDS: amLODIPine BESYLATE 10 MG TABLET (FP) PO SCH (10:18)
[2017-07-16] MEDS: NEBIVOLOL 10 MG TABLET (FP) PO SCH (10:18)
[2017-07-16] MEDS: DOCUSATE SODIUM 100 MG CAPSULE (FP) PO SCH ×2 (10:18→21:46)
[2017-07-16] MEDS: VALSARTAN 160 MG TABLET (UD) PO SCH (10:18)
[2017-07-16 10:59] LABS: ANION GAP 11 (8-16); BLOOD UREA NITROGEN 12 mg/dl (7-18); CALCIUM 8.4 mg/dl (8.4-10.2); CHLORIDE 98 mmol/L (98-107); CO2 25 mmol/L (22-28); CREATININE 0.6 mg/dl (0.6-1.3); GLUCOSE,RANDOM 93 mg/dl (74-106); POTASSIUM 3.4 mmol/L (3.5-5.1); SODIUM 134 mmol/L (136-145)
[2017-07-16] MEDS ORDERED: POTASSIUM CHLORIDE TABS 20 MEQ TABLET.ER (FP) PO ONE (11:30)
[2017-07-16] MEDS ORDERED: ONDANSETRON 4 MG TABLET PO ONE (13:15)
[2017-07-16] MEDS ORDERED: ONDANSETRON 4 MG TABLET PO PRN (14:00)
--- NOTE | 2017-07-16 14:27 | EKG ---
Test Reason : Blood Pressure : / mmHG Vent. Rate : 082 BPM Atrial Rate : 082 BPM P-R Int : 156 ms QRS Dur : 100 ms QT Int : 400 ms P-R-T Axes : 021 004 068 degrees QTc Int : 467 ms NORMAL SINUS RHYTHM NONSPECIFIC T WAVE ABNORMALITY NO PREVIOUS ECGS AVAILABLE Confirmed by ISHMAEL RAMOS MD ([id number] on 07/16/2017 2:26:54 PM Referred By: DR CAMARGO Confirmed By:ISHMAEL RAMOS MD
[2017-07-16] MEDS ORDERED: SODIUM CHLORIDE 1,000 ML IV SCH (14:45)
--- NOTE | 2017-07-16 16:23 | PN ---
Progress Note (short form) - Note Progress Note: Ortho Pt for OR tomorrow afternoon. a/p Plan d/w pt and daughters as per Dr. Sanchez NPO after midnight OR tomorrow
[2017-07-16 17:18] LABS: PH,URINE 6.5 (4.5-8); URINE APPEARANCE Clear; URINE BILIRUBIN 1+ (NEGATIVE); URINE BLOOD Negative (NEGATIVE); URINE GLUCOSE (UA) Negative (NEGATIVE); URINE KETONE 1+ (NEGATIVE); URINE NITRITE Negative (NEGATIVE); URINE UROBILINOGEN 4.0 E.U/dl (0.2-1.0)
[2017-07-16 17:19] LABS: URINE COLOR YELLOW; URINE PROTEIN 1+ (NEGATIVE)
[2017-07-16 18:23] LABS: URINE BACTERIA FEW /hpf (NEGATIVE); URINE RBC 0-2 /hpf (0-3); URINE WBC 0-1 (0-5)
[2017-07-16] MEDS: MONTELUKAST NA 10 MG TABLET PO SCH (21:46)
[2017-07-17] MEDS: LEVOTHYROXINE NA 100 MCG TABLET (FP) PO SCH (06:00)
[2017-07-17] MEDS: amLODIPine BESYLATE 10 MG TABLET (FP) PO SCH (09:46)
[2017-07-17] MEDS: VALSARTAN 160 MG TABLET (UD) PO SCH (09:46)
[2017-07-17] MEDS: DOCUSATE SODIUM 100 MG CAPSULE (FP) PO SCH (09:46)
[2017-07-17] MEDS: NEBIVOLOL 10 MG TABLET (FP) PO SCH (09:46)
[2017-07-17] MEDS ORDERED: BISACODYL 10 MG SUPP.RECT RC ONE (11:00)
[2017-07-17 11:18] LABS: BASO % 0.3 % (0-2.0); EOS % 0.6 % (0-4.5); HEMOGLOBIN 11.4 GM/dl (10.7-15.3); LYMPH % 13.2 % (8-40); MCH 29.3 pg (25.7-33.7); MCHC 33.4 g/dl (32.0-36.0); MEAN CELL VOLUME 87.8 fl (80-96); MEAN PLT VOLUME 8.5 fl (7.5-11.1); MONO % 9.3 % (3.8-10.2); NEUT % 76.6 % (42.8-82.8); PLATELET COUNT 295 K/MM3 (134-434); RBC 3.88 M/mm3 (3.60-5.2); RDW 13.7 % (11.6-15.6); WHITE BLOOD COUNT 12.5 K/mm3 (4.0-10.8)
[2017-07-17 11:22] LABS: ALBUMIN 2.5 g/dl (3.5-5.0); ALK PHOS 65 U/L (32-92); ANION GAP 7 (8-16); BILIRUBIN,TOTAL 1.1 mg/dl (0.2-1.0); BLOOD UREA NITROGEN 10 mg/dl (7-18); CALCIUM 8.3 mg/dl (8.4-10.2); CHLORIDE 101 mmol/L (98-107); CO2 26 mmol/L (22-28); CREATININE 0.6 mg/dl (0.6-1.3); GLUCOSE,RANDOM 103 mg/dl (74-106); MAGNESIUM 1.6 mg/dL (1.8-2.4); PHOSPHOROUS 3.3 mg/dl (2.5-4.6); POTASSIUM 3.5 mmol/L (3.5-5.1); SGOT/AST 25 U/L (10-42); SGPT/ALT 27 U/L (10-40); SODIUM 134 mmol/L (136-145); TOT PROT 5.5 g/dl (6.4-8.3)
[2017-07-17 11:26] LABS: INR 1.12 (0.82-1.09); PROTHROMBIN TIME (PATIENT) 12.5 SEC (10.2-13.0)
[2017-07-17] MEDS ORDERED: MAGNESIUM SULFATE 2 GM in SODIUM CHLORIDE 100 ML IVPB ONE (11:33)
[2017-07-17] MEDS ORDERED: MAGNESIUM SULF 50% (8.12 MEQ/2 ML-1 GM VIAL) IVPB ONE (12:15)
--- NOTE | 2017-07-17 13:14 | PN ---
Physical Exam: SUBJECTIVE: Patient seen and examined, reports ongoing right hip pain denies any paresthesia to the extremity, reports feeling constipated. OBJECTIVE: patient is a 81 y/o female, with a past medical history of HTN, Hypothyroid, s/p right THR 07/08/17, admitted from the emergency department for righ acetabular fracture Vital Signs Period Temp Pulse Resp BP Sys/Gonzales Pulse Ox Last 24 Hr 98.7 F-99.5 F 75-94 19-19 125-142/58-62 95-97 GENERAL: The patient is awake, alert, and fully oriented, in no acute distress. HEAD: Normal with no signs of trauma. EYES: PERRL, extraocular movements intact, sclera anicteric, cataract to left eye, conjunctiva clear. No ptosis. ENT: Ears normal, nares patent, oropharynx clear without exudates, moist mucous membranes. NECK: Trachea midline, full range of motion, supple. LUNGS: Breath sounds equal, clear to auscultation bilaterally, no wheezes, no crackles, no accessory muscle use. HEART: Regular rate and rhythm, S1, S2 without murmur, rub or gallop. ABDOMEN: Soft, nontender, nondistended, normoactive bowel sounds, no guarding, no rebound, no hepatosplenomegaly, no masses. EXTREMITIES: 2+ pulses, warm, well-perfused, no edema. RIGHT LOWER EXTREMITY: point tenderness to the right anterior hip, less than 3 second capillary refill, +3 pedal pulse NEUROLOGICAL: Cranial nerves II through XII grossly intact. Normal speech, gait not observed. PSYCH: Normal mood, normal affect. SKIN: Warm, dry, normal turgor, no rashes or lesions noted Laboratory Results - last 24 hr 07/16/17 07/16/17 07/17/17 07:30 16:55 08:00 WBC RBC Hgb Hct MCV MCH MCHC RDW Plt Count MPV Neutrophils % Lymphocytes % Monocytes % Eosinophils % Basophils % PT with INR INR Sodium Potassium Chloride Carbon Dioxide Anion Gap BUN Creatinine Creat Clearance w eGFR Random Glucose Calcium Phosphorus Magnesium 1.7 L Total Bilirubin AST ALT Alkaline Phosphatase Total Protein Albumin Urine Color Yellow Urine Appearance Clear Urine pH 6.5 Ur Specific [place] 1.020 Urine Protein 1+ H Urine Glucose (UA) Negative Urine Ketones 1+ H Urine Blood Negative Urine Nitrite Negative Urine Bilirubin 1+ H Urine Urobilinogen 4.0 e.u/dl H Ur Leukocyte Esterase Negative Urine RBC 0-2 Urine WBC 0-1 Urine Bacteria Few Blood Type A POSITIVE Antibody Screen Negative 07/17/17 07/17/17 07/17/17 08:00 08:00 08:00 WBC 12.5 H RBC 3.88 Hgb 11.4 Hct 34.0 MCV 87.8 MCH 29.3 MCHC 33.4 RDW 13.7 Plt Count 295 MPV 8.5 Neutrophils % 76.6 Lymphocytes % 13.2 Monocytes % 9.3 Eosinophils % 0.6 Basophils % 0.3 PT with INR 12.5 INR 1.12 Sodium 134 L Potassium 3.5 Chloride 101 Carbon Dioxide 26 Anion Gap 7 L BUN 10 Creatinine 0.6 Creat Clearance w eGFR > 60 Random Glucose 103 Calcium 8.3 L Phosphorus 3.3 Magnesium 1.6 L Total Bilirubin 1.1 H D AST 25 ALT 27 Alkaline Phosphatase 65 Total Protein 5.5 L Albumin 2.5 L Urine Color Urine Appearance Urine pH Ur Specific [place] Urine Protein Urine Glucose (UA) Urine Ketones Urine Blood Urine Nitrite Urine Bilirubin Urine Urobilinogen Ur Leukocyte Esterase Urine RBC Urine WBC Urine Bacteria Blood Type Antibody Screen Active Medications Generic Name Dose Route Start Last Admin Trade Name Freq PRN Reason Stop Dose Admin Acetaminophen 650 mg 07/16/17 12:18 Tylenol - PO Q4H PRN PAIN LEVEL 1-5 Amlodipine Besylate 10 mg 07/16/17 10:00 07/17/17 09:46 Norvasc - PO 10 mg DAILY DHEERAJ Administration Docusate Sodium 100 mg 07/15/17 22:00 07/17/17 09:46 Colace - PO 100 mg BID DHEERAJ Administration Sodium Chloride 1,000 mls @ 42 mls/hr 07/16/17 14:45 07/16/17 15:30 Normal Saline - IV 42 mls/hr ASDIR DHEERAJ Administration Levothyroxine Sodium 100 mcg 07/16/17 07:00 07/17/17 06:00 Synthroid - PO 100 mcg DAILY@0700 DHEERAJ Administration Montelukast Sodium 10 mg 07/15/17 22:00 07/16/17 21:46 Singulair - PO 10 mg HS DHEERAJ Administration Morphine Sulfate 2 mg 07/15/17 19:40 07/16/17 10:17 Morphine Injection - IVPUSH 2 mg Q4H PRN Administration PAIN LEVEL 6-10 Nebivolol 10 mg 07/16/17 10:00 07/17/17 09:46 Bystolic - PO 10 mg DAILY DHEERAJ Administration Ondansetron HCl 4 mg 07/16/17 14:00 Zofran - PO TID PRN NAUSEA Valsartan 160 mg 07/16/17 10:00 07/17/17 09:46 Diovan - PO 160 mg DAILY DHEERAJ Administration ASSESSMENT/PLAN: 1.MS right hui-prosthetic fracture - pending OR today - Dr Sanchez consulted and following - neurovascular checks, incentive spirometer 2. ID Leukocytosis - Likely secondary to stress (recent surgery) vs inflammation - Monitor CBC and fever curve, pending urine culture 3. cardiovascular Hypertension - at goal, Monitor BP - Continue Norvasc, Bystolic, Valsartan - Monitor renal function 4.endo Hypothyroid - Continue Levothyroxine - pending tsh 5. FEN - PO Fluids--npo - Replete lytes prn - Low Na diet 6. DVT Prophylaxis - SCDs - Hold AC secondary to pending surgery Code Status: Full Code Dispo: Requires Inpatient Care Visit type - Emergency Visit Emergency Visit: Yes ED Registration Date: 07/15/17 Care time: The patient presented to the Emergency Department on the above date and was hospitalized for further evaluation of their emergent condition. - New Patient This patient is new to me today: No - Critical Care Critical Care patient: No - Discharge Referral Referred to [facility] Med P.C.: No
[2017-07-17] MEDS ORDERED: VANCOMYCIN 1,000 MG VIAL (RESTRICTED TO ID ONLY) ONE (15:42)
[2017-07-17] MEDS ORDERED: ceFAZolin SODIUM 1 GM VIAL ONE (15:42)
[2017-07-17] MEDS ORDERED: MIDAZOLAM HCL 2 MG/2 ML SINGLE DOSE VIAL ONE ×5 (15:46→17:26)
[2017-07-17] MEDS ORDERED: MAGNESIUM HYDROX 2400MG/30ML ORAL SUSPENSION 30 ML CUP PO PRN (15:48)
[2017-07-17] MEDS ORDERED: MAG HYDROX/AL HYDROX/SIMETH 30 ML UNIT-DOSE CUP PO PRN (15:48)
[2017-07-17] MEDS ORDERED: ELECTROLYTE-148 SOLN 1,000 ML IV SCH (16:00)
[2017-07-17] MEDS ORDERED: PROPOFOL 20 ML ONE (16:14)
[2017-07-17] MEDS ORDERED: PHENYLEPHRINE HCL 10 MG/1 ML SINGLE DOSE VIAL ONE (16:19)
[2017-07-17] MEDS ORDERED: TRANEXAMIC ACID 1000 MG/10 ML VIAL ONE (16:22)
--- NOTE | 2017-07-17 17:49 | OP ---
Operative Note - Note: Operative Date: 07/17/17 (magali) Pre-Operative Diagnosis: right periprosthetic femur fx Operation: right revision THR, proximal femur ORIF Post-Operative Diagnosis: Same as Pre-op Surgeon: Rishabh Sanchez Utilization Manager: Alberto Art Anesthesiologist/SUPERVISOR TELEPHONE CLERKS: Khalif Evans Anesthesia: Spinal Specimens Removed: femoral prosthesis Estimated Blood Loss (mls): 300 Operative Report Dictated: Yes
[2017-07-17] MEDS ORDERED: PROMETHAZINE HCL 25 MG/1 ML VIAL IVPUSH PRN (17:51)
[2017-07-17] MEDS ORDERED: ONDANSETRON 4 MG/2 ML VIAL IVPUSH PRN (17:51)
[2017-07-17] MEDS ORDERED: LACTATED RINGERS SOLUTION 1,000 ML IV SCH (18:00)
[2017-07-17] MEDS ORDERED: ONDANSETRON 4 MG/2 ML VIAL IVPUSH ONE (18:13)
[2017-07-17] MEDS ORDERED: HYDROmorphone HCL CARPU-JECT 1 MG/1 ML DISP.SYRIN ONE (18:34)
[2017-07-17] MEDS ORDERED: HYDROmorphone HCL CARPU-JECT 1 MG/1 ML DISP.SYRIN IVPUSH ONE ×3 (18:36→19:30)
[2017-07-17] MEDS ORDERED: morphine CARPU-JECT 2 MG/1 ML DISP.SYRIN ONE (19:08)
[2017-07-17] MEDS ORDERED: morphine CARPU-JECT 2 MG/1 ML DISP.SYRIN IVPUSH ONE ×2 (19:12→19:30)
[2017-07-17] MEDS: SENNOSIDES/DOCUSATE COMBO (SENNA PLUS) TABLET (UD) PO SCH (22:05)
[2017-07-17] MEDS: MONTELUKAST NA 10 MG TABLET PO SCH (22:05)
[2017-07-17] MEDS: oxyCODONE HCL 5 MG TABLET PO PRN (22:05)
[2017-07-17] MEDS: CEFAZOLIN 2 GM/D5W 2 GM/50 ML ML IVPB SCH (23:31)
[2017-07-18] MEDS: oxyCODONE HCL 5 MG TABLET PO PRN ×3 (02:51→12:05)
[2017-07-18] MEDS: LEVOTHYROXINE NA 100 MCG TABLET (FP) PO SCH (06:05)
--- NOTE | 2017-07-18 07:45 | OP ---
DATE OF OPERATION: 07/17/2017 PREOPERATIVE DIAGNOSIS: Periprosthetic fracture, right femur. POSTOPERATIVE DIAGNOSIS: Periprosthetic fracture, right femur. PROCEDURE: Revision of femoral stem and open reduction internal fixation, right femur. SURGICAL ATTENDING: Rishabh Sanchez MD ANIMAL PATHOLOGIST: LAURA Nolan ANESTHESIA: Spinal. CLOSURE: Hoahaoism modular femoral stem of appropriate size with a standard body and a 19 intramedullary distal femoral piece, a medium information management manager for the trochanter, 2 Dall-Miles cables for the femur, No 1 Vicryl fascia, 0 and 2-0 for subcutaneous, 3-0 V-Lock 90 for skin. ESTIMATED BLOOD LOSS: Approximately 250 mL. COMPLICATIONS: None. CONDITION: To recovery room in stable condition. DESCRIPTION OF PROCEDURE: The patient was taken to the operating room on July 17, 2017. Spinal anesthesia was administered by the anesthesiologist. IV Kefzol was administered prophylactically prior to the case. The patient was placed in the lateral decubitus position with all prominences well padded. The right hip area was prepped and draped in the usual sterile fashion. Previously used incisions from the index total hip replacement were utilized. Hemostasis was achieved with Bovie cautery. Sharp dissection was carried down to the level of the fascia. We cut the sutures from the previous surgery. The fascia opened exposing the fracture. A Charnley retractor was placed in this layer with care taken not to impale the sciatic nerve. All previous sutures that were observed were removed. The fracture was found to be completely displaced with a loose femoral component. The component was just pulled out of the incision. The remaining fracture consisted of a large greater trochanteric piece followed by a split medial bone down towards the tip of the component. This was initially fixated by 2 Dall-Miles cables circumferentially, re-establishing the tube of the intramedullary canal. Excellent fixation was obtained and anatomical reduction of this part of the fracture. The intramedullary canal was then reamed with serial reamers until a 19 reamer achieved with good fill and chatter. A 225-mm stem was chosen and was malleted down in the intramedullary canal, which achieved an excellent fit distally. A trial reduction with a standard body and a +5 head achieved excellent limb length and excellent stability in extension and external rotation and marked flexion and was stable at 90 degrees of flexion with marked adduction as positive hang test and negative . The trial components were removed. The real standard body was then cold welded and screwed to the stem with the appropriate aversion. A left side 36-mm head was then cold welded. The hip was reduced. Range of motion and limb length was described earlier. The trochanter was then hollowed out from the inside to allow it to flush against the stem. Two cables were placed around the neck and then passed over the trochanter and passed through a medium trochanteric information management manager. The information management manager was tensioned to fixate the greater trochanter and then was crimped and the excess cable was cut. Range of motion, stability, limb length as described earlier. Intraoperative x-ray was performed to ensure excellent positioning of components of reduction of the hip, which was seen. The hip was post antibiotic irrigated. Vancomycin powder was placed in the joint. The capsule was closed again. No. 1 was used to close the fascia with interrupted suture, 0 and 2-0 for subcutaneous and 3-0 V-Lock 90 for skin and skin glue. A sterile pressure dressing was applied of Aquacel variety. The patient was flipped into the supine position. Abduction pillow and SCDs were applied. The patient was transferred to recovery room in stable condition. No complications. Estimated blood loss was approximately 200 mL. Ziggy [id number]
--- NOTE | 2017-07-18 08:15 | PN ---
Physical Exam: SUBJECTIVE: Patient seen and examined, sitting in bedside chair, reports pain upon movement to the right lower extremity, patient denies any paresthesia. OBJECTIVE:patient is a 81 y/o female, with a past medical history of HTN, Hypothyroid, s/p right THR 07/08/17, admitted from the emergency department for righ acetabular fracture, patient is s/p right revision THR, ORIF (07/17/17) Vital Signs Period Temp Pulse Resp BP Sys/Gonzales Pulse Ox Last 24 Hr 98.2 F-100.3 F 79-101 18-19 128-169/55-73 94-100 GENERAL: The patient is awake, alert, and fully oriented, in no acute distress. HEAD: Normal with no signs of trauma. EYES: PERRL, extraocular movements intact, sclera anicteric, conjunctiva clear. No ptosis. ENT: Ears normal, nares patent, oropharynx clear without exudates, moist mucous membranes. NECK: Trachea midline, full range of motion, supple. LUNGS: Breath sounds equal, clear to auscultation bilaterally, no wheezes, no crackles, no accessory muscle use. HEART: Regular rate and rhythm, S1, S2 without murmur, rub or gallop. ABDOMEN: Soft, nontender, nondistended, normoactive bowel sounds, no guarding, no rebound, no hepatosplenomegaly, no masses. EXTREMITIES: 2+ pulses, warm, well-perfused, no edema. RIGHT LOWER EXTREMITY: aguacel dressing to the right lateral hip, CDI, less than 3 second capillary refill, +3 pedal pulse NEUROLOGICAL: Cranial nerves II through XII grossly intact. Normal speech, gait not observed. PSYCH: Normal mood, normal affect. SKIN: Warm, dry, normal turgor, no rashes or lesions noted Laboratory Results - last 24 hr 07/17/17 07/17/17 07/17/17 08:00 08:00 08:00 WBC 12.5 H RBC 3.88 Hgb 11.4 Hct 34.0 MCV 87.8 MCH 29.3 MCHC 33.4 RDW 13.7 Plt Count 295 MPV 8.5 Neutrophils % 76.6 Lymphocytes % 13.2 Monocytes % 9.3 Eosinophils % 0.6 Basophils % 0.3 PT with INR 12.5 INR 1.12 Sodium Potassium Chloride Carbon Dioxide Anion Gap BUN Creatinine Creat Clearance w eGFR Random Glucose Calcium Phosphorus Magnesium Total Bilirubin AST ALT Alkaline Phosphatase Total Protein Albumin TSH Blood Type A POSITIVE Antibody Screen Negative 07/17/17 07/17/17 08:00 08:00 WBC RBC Hgb Hct MCV MCH MCHC RDW Plt Count MPV Neutrophils % Lymphocytes % Monocytes % Eosinophils % Basophils % PT with INR INR Sodium 134 L Potassium 3.5 Chloride 101 Carbon Dioxide 26 Anion Gap 7 L BUN 10 Creatinine 0.6 Creat Clearance w eGFR > 60 Random Glucose 103 Calcium 8.3 L Phosphorus 3.3 Magnesium 1.6 L Total Bilirubin 1.1 H D AST 25 ALT 27 Alkaline Phosphatase 65 Total Protein 5.5 L Albumin 2.5 L TSH 2.97 Blood Type Antibody Screen Active Medications Generic Name Dose Route Start Last Admin Trade Name Freq PRN Reason Stop Dose Admin Acetaminophen 650 mg 07/16/17 12:18 Tylenol - PO Q4H PRN PAIN LEVEL 1-5 Al Hydroxide/Mg Hydroxide 30 ml 07/17/17 15:48 Mylanta Oral Suspension - PO Q4H PRN DYSPEPSIA Amlodipine Besylate 10 mg 07/16/17 10:00 07/17/17 09:46 Norvasc - PO 10 mg DAILY DHEERAJ Administration Aspirin 325 mg 07/18/17 08:00 Asa - PO DAILY@0800 DHEERAJ Fentanyl 25 mcg 07/17/17 17:51 Sublimaze Injection - IVPUSH [id number] PRN PAIN-PACU ORDER X 4 DOSES ONLY Cefazolin Sodium/Dextrose 2 gm in 50 mls @ 100 mls/hr 07/17/17 23:31 23:31 Ancef 2 Gm Premixed Ivpb - IVPB 07/18/17 10:29 100 mls/hr Q8H-IV DHEERAJ Administration Lactated Ringer's 1,000 mls @ 75 mls/hr 07/17/17 18:00 07/18/17 07:27 Lactated Ringers Solution IV Not Given ASDIR DHEERAJ Levothyroxine Sodium 100 mcg 07/16/17 07:00 07/18/17 06:05 Synthroid - PO 100 mcg DAILY@0700 DHEERAJ Administration Magnesium Hydroxide 30 ml 07/17/17 15:48 Milk Of Magnesia - PO DAILY PRN CONSTIPATION Montelukast Sodium 10 mg 07/15/17 22:00 01/25/18 22:05 Singulair - PO 10 mg HS DHEERAJ Administration Morphine Sulfate 2 mg 07/15/17 19:40 07/16/17 10:17 Morphine Injection - IVPUSH 2 mg Q4H PRN Administration PAIN LEVEL 6-10 Multivitamins/Minerals/Vitamin C 1 tab 07/18/17 10:00 Tab-A-Vit - PO DAILY DHEERAJ Nebivolol 10 mg 07/16/17 10:00 07/17/17 09:46 Bystolic - PO 10 mg DAILY DHEERAJ Administration Ondansetron HCl 4 mg 07/16/17 14:00 Zofran - PO TID PRN NAUSEA Ondansetron HCl 4 mg 07/17/17 17:51 Zofran Injection IVPUSH Q6H PRN NAUSEA AND/OR VOMITING Oxycodone HCl 5 mg 07/17/17 17:51 07/18/17 02:51 Roxicodone - PO 07/18/17 17:50 5 mg Q4H PRN Administration Pain Level > 4 Pantoprazole Sodium 40 mg 07/18/17 10:00 Protonix - PO DAILY DHEERAJ Promethazine HCl 12.5 mg 07/17/17 17:51 Phenergan Injection - IVPUSH Q6H PRN NAUSEA-FOR RESCUE AFTER 15 MIN Senna/Docusate Sodium 1 tablet 07/17/17 22:00 07/17/17 22:05 Pericolace - PO 1 tablet BID DHEERAJ Administration Valsartan 160 mg 07/16/17 10:00 07/17/17 09:46 Diovan - PO 160 mg DAILY DHEERAJ Administration IMAGING ct of lower extremity: intact hardware, periprosthetic complete fractures in the posterior wall of the right acetabulum with no displacement, mildly displaced fracture through the right femoral diaphysiis ASSESSMENT/PLAN: 1.MS right hui-prosthetic fracture, s/p right THR revision, ORIF, POD #1 - Dr Sanchez consulted and following - neurovascular checks, incentive spirometer - physical therapy toe touch to right lower extremity 2. ID Leukocytosis - pt afebrile, awaiting am labs, pending urine culture, Monitor CBC and fever curve, pending urine culture 3. cardiovascular Hypertension - at goal, Monitor BP - Continue Norvasc, Bystolic, Valsartan - Monitor renal function 4.endo Hypothyroid - Continue Levothyroxine - tsh wnl 5. FEN - PO Fluids--npo - Replete lytes prn - Low Na diet 6. DVT Prophylaxis - SCDs - asa - incentive spirometer Code Status: Full Code Dispo: Requires Inpatient Care transfer to [facility] for inpatient short term rehab on 07/21/17 Visit type - Emergency Visit Emergency Visit: Yes ED Registration Date: 07/15/17 Care time: The patient presented to the Emergency Department on the above date and was hospitalized for further evaluation of their emergent condition. - New Patient This patient is new to me today: No - Critical Care Critical Care patient: No - Discharge Referral Referred to [facility] Med [facility].C.: No
[2017-07-18] MEDS: CEFAZOLIN 2 GM/D5W 2 GM/50 ML ML IVPB SCH (09:02)
[2017-07-18] MEDS: ASPIRIN 325 MG TABLET PO SCH (09:02)
[2017-07-18] MEDS: amLODIPine BESYLATE 10 MG TABLET (FP) PO SCH (09:03)
[2017-07-18] MEDS: NEBIVOLOL 10 MG TABLET (FP) PO SCH (09:03)
[2017-07-18] MEDS: VALSARTAN 160 MG TABLET (UD) PO SCH (09:04)
[2017-07-18] MEDS: PANTOPRAZOLE 40 MG TABLET (FP) PO SCH (09:05)
[2017-07-18] MEDS: MULTIVITAMINS (DAILY MVI) TABLET (FP) PO SCH (09:05)
[2017-07-18] MEDS: SENNOSIDES/DOCUSATE COMBO (SENNA PLUS) TABLET (UD) PO SCH ×3 (09:05→22:59)
[2017-07-18 09:29] LABS: ANION GAP 6 (8-16); BLOOD UREA NITROGEN 13 mg/dl (7-18); CALCIUM 7.8 mg/dl (8.4-10.2); CHLORIDE 99 mmol/L (98-107); CO2 26 mmol/L (22-28); CREATININE 0.6 mg/dl (0.6-1.3); GLUCOSE,RANDOM 139 mg/dl (74-106); MAGNESIUM 1.7 mg/dL (1.8-2.4); PHOSPHOROUS 3.6 mg/dl (2.5-4.6); POTASSIUM 3.9 mmol/L (3.5-5.1); SODIUM 131 mmol/L (136-145)
[2017-07-18] MEDS ORDERED: MAGNESIUM SULFATE 2 GM in SODIUM CHLORIDE 100 ML IVPB ONE (09:44)
[2017-07-18] MEDS ORDERED: MAGNESIUM SULF 50% (8.12 MEQ/2 ML-1 GM VIAL) IVPB ONE (10:15)
--- NOTE | 2017-07-18 11:27 | PN ---
Progress Note (short form) - Note Progress Note: Ortho Pt seen and examined s/p right revision THR, orif pod #1. Seen with Dr. Sanchez Selected Entries 07/18/17 05:23 Temperature 99.7 F H Pulse Rate 101 H Respiratory 19 Rate Blood Pressure 144/64 Laboratory Tests 07/18/17 00:25 WBC Pending Hgb Pending Hct Pending Plt Count Pending dressing c/d/i, calf soft, nt nvi a/p PT TTWB dvt ppx pain control d/c planning
--- NOTE | 2017-07-18 11:53 | PN ---
Progress Note (short form) - Note Progress Note: ANESTHESIA POSTOP: 81 YO F S/P REVISION OF RIGHT FEMORAL STEM POD #1 S: Patient lying in bed, tolerating PO, complains of pain but not specific to site of surgery, some relief with pain medications O: Vitals WNL A/P: Patient doing ok, no anesthetic complications, continue current care
--- NOTE | 2017-07-18 12:50 | PN ---
Physical Exam: SUBJECTIVE: Patient seen and examined, sitting in bedside chair, reports pain upon movement to the right lower extremity, patient denies any paresthesia. OBJECTIVE: Vital Signs Period Temp Pulse Resp BP Sys/Gonzales Pulse Ox Last 24 Hr 98.2 F-100.3 F 79-101 18-19 128-169/55-73 94-100 GENERAL: The patient is awake, alert, and fully oriented, in no acute distress. HEAD: Normal with no signs of trauma. EYES: PERRL, extraocular movements intact, sclera anicteric, conjunctiva clear. No ptosis. ENT: Ears normal, nares patent, oropharynx clear without exudates, moist mucous membranes. NECK: Trachea midline, full range of motion, supple. LUNGS: Breath sounds equal, clear to auscultation bilaterally, no wheezes, no crackles, no accessory muscle use. HEART: Regular rate and rhythm, S1, S2 without murmur, rub or gallop. ABDOMEN: Soft, nontender, nondistended, normoactive bowel sounds, no guarding, no rebound, no hepatosplenomegaly, no masses. EXTREMITIES: 2+ pulses, warm, well-perfused, no edema. NEUROLOGICAL: Cranial nerves II through XII grossly intact. Normal speech, gait not observed. PSYCH: Normal mood, normal affect. SKIN: Warm, dry, normal turgor, no rashes or lesions noted Laboratory Results - last 24 hr 07/17/17 07/18/17 08:00 08:50 Sodium 131 L Potassium 3.9 Chloride 99 Carbon Dioxide 26 Anion Gap 6 L BUN 13 D Creatinine 0.6 Random Glucose 139 H D Calcium 7.8 L Phosphorus 3.6 Magnesium 1.7 L TSH 2.97 Active Medications Generic Name Dose Route Start Last Admin Trade Name Freq PRN Reason Stop Dose Admin Acetaminophen 650 mg 07/16/17 12:18 Tylenol - PO Q4H PRN PAIN LEVEL 1-5 Al Hydroxide/Mg Hydroxide 30 ml 07/17/17 15:48 Mylanta Oral Suspension - PO Q4H PRN DYSPEPSIA Amlodipine Besylate 10 mg 07/16/17 10:00 07/18/17 09:03 Norvasc - PO 10 mg DAILY DHEERAJ Administration Aspirin 325 mg 07/18/17 08:00 07/18/17 09:02 Asa - PO 325 mg DAILY@0800 DHEERAJ Administration Lactated Ringer's 1,000 mls @ 75 mls/hr 07/17/17 18:00 07/18/17 07:27 Lactated Ringers Solution IV Not Given ASDIR DHEERAJ Levothyroxine Sodium 100 mcg 07/16/17 07:00 07/18/17 06:05 Synthroid - PO 100 mcg DAILY@0700 DHEERAJ Administration Magnesium Hydroxide 30 ml 07/17/17 15:48 Milk Of Magnesia - PO DAILY PRN CONSTIPATION Montelukast Sodium 10 mg 07/15/17 22:00 07/17/17 22:05 Singulair - PO 10 mg HS DHEERAJ Administration Morphine Sulfate 2 mg 07/15/17 19:40 07/16/17 10:17 Morphine Injection - IVPUSH 2 mg Q4H PRN Administration PAIN LEVEL 6-10 Multivitamins/Minerals/Vitamin C 1 tab 07/18/17 10:00 07/18/17 09:05 Tab-A-Vit - PO 1 tab DAILY DHEERAJ Administration Nebivolol 10 mg 07/16/17 10:00 07/18/17 09:03 Bystolic - PO 10 mg DAILY [facility] Administration Ondansetron HCl 4 mg 07/16/17 14:00 Zofran - PO TID PRN NAUSEA Oxycodone HCl 5 mg 07/17/17 17:51 07/18/17 12:05 Roxicodone - PO 07/18/17 17:50 5 mg Q4H PRN Administration Pain Level > 4 Pantoprazole Sodium 40 mg 07/18/17 10:00 07/18/17 09:05 Protonix - PO 40 mg DAILY DHEERAJ Administration Senna/Docusate Sodium 1 tablet 07/17/17 22:00 07/18/17 09:05 Pericolace - PO 1 tablet BID [facility] Administration Valsartan 160 mg 07/16/17 10:00 07/18/17 09:04 Diovan - PO 160 mg DAILY DHEERAJ Administration ASSESSMENT/PLAN:
[2017-07-18 18:07] LABS: HEMATOCRIT 30.4 % (32.4-45.2); MCH 28.9 pg (25.7-33.7); MCHC 32.9 g/dl (32.0-36.0); MEAN CELL VOLUME 87.7 fl (80-96); MEAN PLT VOLUME 8.3 fl (7.5-11.1); PLATELET COUNT 341 K/MM3 (134-434); RBC 3.46 M/mm3 (3.60-5.2); RDW 13.9 % (11.6-15.6); WHITE BLOOD COUNT 20.9 K/mm3 (4.0-10.8)
[2017-07-18 21:49] LABS: PLATELET ESTIMATE ADEQUATE
[2017-07-18] MEDS: MONTELUKAST NA 10 MG TABLET PO SCH (22:59)
[2017-07-19] MEDS: ACETAMINOPHEN 325 MG TABLET (FP) PO PRN ×4 (01:00→17:20)
[2017-07-19] MEDS: LEVOTHYROXINE NA 100 MCG TABLET (FP) PO SCH (06:06)
[2017-07-19 07:54] LABS: HEMATOCRIT 29.8 % (32.4-45.2); HEMOGLOBIN 9.7 GM/dl (10.7-15.3); MCH 28.3 pg (25.7-33.7); MCHC 32.6 g/dl (32.0-36.0); MEAN CELL VOLUME 86.9 fl (80-96); MEAN PLT VOLUME 7.5 fl (7.5-11.1); PLATELET COUNT 365 K/MM3 (134-434); RBC 3.42 M/mm3 (3.60-5.2); RDW 13.8 % (11.6-15.6); WHITE BLOOD COUNT 20.3 K/mm3 (4.0-10.8)
[2017-07-19 07:59] LABS: ADD RBC MORPHOLOGY YES
[2017-07-19] MEDS: ASPIRIN 325 MG TABLET PO SCH (08:00)
[2017-07-19 08:22] LABS: ANION GAP 9 (8-16); BLOOD UREA NITROGEN 16 mg/dl (7-18); CALCIUM 7.9 mg/dl (8.4-10.2); CHLORIDE 93 mmol/L (98-107); CO2 26 mmol/L (22-28); CREATININE 0.7 mg/dl (0.6-1.3); GLUCOSE,RANDOM 112 mg/dl (74-106); MAGNESIUM 2.1 mg/dL (1.8-2.4); POTASSIUM 3.8 mmol/L (3.5-5.1); SODIUM 128 mmol/L (136-145)
[2017-07-19 09:29] LABS: PLATELET ESTIMATE ADEQUATE
[2017-07-19] MEDS: NEBIVOLOL 10 MG TABLET (FP) PO SCH (09:36)
[2017-07-19] MEDS: VALSARTAN 160 MG TABLET (UD) PO SCH (09:36)
[2017-07-19] MEDS: amLODIPine BESYLATE 10 MG TABLET (FP) PO SCH (09:37)
[2017-07-19] MEDS: PANTOPRAZOLE 40 MG TABLET (FP) PO SCH (09:37)
[2017-07-19] MEDS: MULTIVITAMINS (DAILY MVI) TABLET (FP) PO SCH (09:37)
[2017-07-19] MEDS: SENNOSIDES/DOCUSATE COMBO (SENNA PLUS) TABLET (UD) PO SCH ×2 (09:37→21:18)
--- NOTE | 2017-07-19 12:24 | PN ---
Physical Exam: SUBJECTIVE: Patient seen and examined. Pain is presently well-managed with Tylenol. No appetite. Decreased UOP. OBJECTIVE: Vital Signs Period Temp Pulse Resp BP Sys/Gonzales Pulse Ox Last 24 Hr 98.7 F-99.0 F 80-98 18-19 109-121/45-49 94-96 GENERAL: The patient is awake, alert, and fully oriented, in no acute distress. LUNGS: Breath sounds equal, clear to auscultation bilaterally, no wheezes, no crackles, no accessory muscle use. HEART: Regular rate and rhythm, S1, S2, +murmur ABDOMEN: Soft, nontender, nondistended, normoactive bowel sounds, no guarding, no rebound, no hepatosplenomegaly, no masses. RIGHT LOWER EXTREMITY: Surgical dressing with minimal strikethrough, intact, no surrounding erythema or warmth; 2+ DP pulse, warm, well-perfused; intact sensory NEUROLOGICAL: Cranial nerves II through XII grossly intact. Normal speech, gait not observed. Laboratory Results - last 24 hr 07/18/17 07/19/17 07/19/17 17:15 07:48 07:48 WBC 20.9 H D 20.3 H RBC 3.46 L 3.42 L Hgb 10.0 L D 9.7 L Hct 30.4 L 29.8 L MCV 87.7 86.9 MCH 28.9 28.3 MCHC 32.9 32.6 RDW 13.9 13.8 Plt Count 341 365 MPV 8.3 7.5 Neutrophils % No Result Required. Neutrophils % (Manual) 88.0 H 86.0 H Lymphocytes % No Result Required. Lymphocytes % (Manual) 8.0 4.0 L Monocytes % (Manual) 4 10 Platelet Estimate Adequate Adequate Sodium 128 L Potassium 3.8 Chloride 93 L Carbon Dioxide 26 Anion Gap 9 BUN 16 D Creatinine 0.7 Random Glucose 112 H Calcium 7.9 L Phosphorus 3.0 Magnesium 2.1 Active Medications Generic Name Dose Route Start Last Admin Trade Name Freq PRN Reason Stop Dose Admin Acetaminophen 650 mg 07/16/17 12:18 07/19/17 08:08 Tylenol - PO 650 mg Q4H PRN Administration PAIN LEVEL 1-5 Al Hydroxide/Mg Hydroxide 30 ml 07/17/17 15:48 Mylanta Oral Suspension - PO Q4H PRN DYSPEPSIA Amlodipine Besylate 10 mg 07/16/17 10:00 07/19/17 09:37 Norvasc - PO 10 mg DAILY DHEERAJ Administration Aspirin 325 mg 07/18/17 08:00 07/19/17 08:00 Asa - PO 325 mg DAILY@0800 DHEERAJ Administration Levothyroxine Sodium 100 mcg 07/16/17 07:00 07/19/17 06:06 Synthroid - PO 100 mcg DAILY@0700 DHEERAJ Administration Magnesium Hydroxide 30 ml 07/17/17 15:48 Milk Of Magnesia - PO DAILY PRN CONSTIPATION Montelukast Sodium 10 mg 07/15/17 22:00 07/18/17 22:59 Singulair - PO 10 mg HS DHEERAJ Administration Multivitamins/Minerals/Vitamin C 1 tab 07/18/17 10:00 07/19/17 09:37 Tab-A-Vit - PO 1 tab DAILY DHEERAJ Administration Nebivolol 10 mg 07/16/17 10:00 07/19/17 09:36 Bystolic - PO 10 mg DAILY DHEERAJ Administration Ondansetron HCl 4 mg 07/16/17 14:00 Zofran - PO TID PRN NAUSEA Pantoprazole Sodium 40 mg 07/18/17 10:00 07/19/17 09:37 Protonix - PO 40 mg DAILY DHEERAJ Administration Senna/Docusate Sodium 1 tablet 07/17/17 22:00 07/19/17 09:37 Pericolace - PO 1 tablet BID DHEERAJ Administration Valsartan 160 mg 07/16/17 10:00 07/19/17 09:36 Diovan - PO 160 mg DAILY DHEERAJ Administration IMAGING CT RLE: periprosthetic complete fractures in the posterior wall of the right acetabulum with no displacement, mildly displaced fracture through the right femoral diaphysis ASSESSMENT/PLAN Right total hip replacement 07/08 Periprosthetic femur fracture s/p revised right total hip replacement, proximal femur ORIF 07/17 --pain well-managed --incentive spirometer Leukocytotis --WBC 20.3 --afebrile, CXR negative, UA negative --likely post-surgical inflammatory response; no antibiotics for now Hypertension --BP stable --continue valsartan, Bystolic, amlodipine Hypothyroidism --TSH wnl --continue levothyroxine Hyponatremia --patient reports decreased UOP; little PO intake --urine studies FEN Fluids: NS @ 75mL/hr Electrolytes: replete as indicated Nutrition: regular diet DVT Prophylaxis: SCDs, full dose daily ASA Dispo: continues to require inpatient care; plan is to go to [facility] for short term rehab on 07/21/17. Full code. Visit type - Emergency Visit Emergency Visit: Yes ED Registration Date: 07/15/17 Care time: The patient presented to the Emergency Department on the above date and was hospitalized for further evaluation of their emergent condition. - New Patient This patient is new to me today: Yes Date on this admission: 07/19/17 - Critical Care Critical Care patient: No
[2017-07-19] MEDS ORDERED: SODIUM CHLORIDE 1,000 ML IV SCH (14:15)
[2017-07-19 20:25] LABS: ANION GAP 9 (8-16); BLOOD UREA NITROGEN 21 mg/dl (7-18); CALCIUM 7.8 mg/dl (8.4-10.2); CHLORIDE 94 mmol/L (98-107); CO2 26 mmol/L (22-28); CREATININE 0.9 mg/dl (0.6-1.3); GLUCOSE,RANDOM 118 mg/dl (74-106); POTASSIUM 3.9 mmol/L (3.5-5.1); SODIUM 129 mmol/L (136-145)
--- NOTE | 2017-07-19 21:16 | PN ---
Progress Note (short form) - Note Progress Note: AVSS COMFORTABLE BANDAGES DRY AND INTACT CALF SOFT AND NT NVI IMP: DOING WELL PLAN: OOB, PT, DC PLANNING
[2017-07-19] MEDS: SODIUM CHLORIDE 1,000 ML IV SCH (21:18)
[2017-07-19] MEDS: MONTELUKAST NA 10 MG TABLET PO SCH (21:18)
[2017-07-19 22:46] LABS: OSMOLALITY,SERUM 273 mosm/kg (278-305); OSMOLALITY,URINE 374 mosm/kg (300-900)
[2017-07-20] MEDS: ACETAMINOPHEN 325 MG TABLET (FP) PO PRN ×3 (05:26→20:14)
[2017-07-20] MEDS: LEVOTHYROXINE NA 100 MCG TABLET (FP) PO SCH (06:15)
[2017-07-20] MEDS: ASPIRIN 325 MG TABLET PO SCH (08:15)
[2017-07-20 09:00] LABS: HEMATOCRIT 27.3 % (32.4-45.2); HEMOGLOBIN 8.8 GM/dl (10.7-15.3); MCH 28.3 pg (25.7-33.7); MCHC 32.2 g/dl (32.0-36.0); MEAN CELL VOLUME 87.8 fl (80-96); MEAN PLT VOLUME 8.4 fl (7.5-11.1); PLATELET COUNT 364 K/MM3 (134-434); RBC 3.11 M/mm3 (3.60-5.2); RDW 13.7 % (11.6-15.6)
--- NOTE | 2017-07-20 09:07 | PN ---
Physical Exam: SUBJECTIVE: Patient seen and examined OBJECTIVE: Vital Signs Period Temp Pulse Resp BP Sys/Gonzales Pulse Ox Last 24 Hr 98.6 F-99.8 F 73-95 18-18 115-131/49-52 94-99 GENERAL: The patient is awake, alert, and fully oriented, in no acute distress. LUNGS: Breath sounds equal, clear to auscultation bilaterally, no wheezes, no crackles, no accessory muscle use. HEART: Regular rate and rhythm, S1, S2, +murmur ABDOMEN: Soft, nontender, nondistended, normoactive bowel sounds, no guarding, no rebound, no hepatosplenomegaly, no masses. RIGHT LOWER EXTREMITY: Surgical dressing with minimal strikethrough, intact, no surrounding erythema or warmth; 2+ DP pulse, warm, well-perfused; intact sensory NEUROLOGICAL: Cranial nerves II through XII grossly intact. Normal speech, gait not observed. Laboratory Results - last 24 hr 07/19/17 07/19/17 07/19/17 07:48 19:30 19:30 Neutrophils % (Manual) 86.0 H Lymphocytes % (Manual) 4.0 L Monocytes % (Manual) 10 Platelet Estimate Adequate Sodium Potassium Chloride Carbon Dioxide Anion Gap BUN Creatinine Random Glucose Serum Osmolality Calcium Urine Osmolality Ur Random Sodium < 12 L Urine Creatinine 82.7 07/19/17 07/19/17 19:45 19:45 Neutrophils % (Manual) Lymphocytes % (Manual) Monocytes % (Manual) Platelet Estimate Sodium 129 L Potassium 3.9 Chloride 94 L Carbon Dioxide 26 Anion Gap 9 BUN 21 H D Creatinine 0.9 D Random Glucose 118 H Serum Osmolality 273 L Calcium 7.8 L Urine Osmolality 374 Ur Random Sodium Urine Creatinine Active Medications Generic Name Dose Route Start Last Admin Trade Name Freq PRN Reason Stop Dose Admin Acetaminophen 650 mg 07/16/17 12:18 07/20/17 05:26 Tylenol - PO 650 mg Q4H PRN Administration PAIN LEVEL 1-5 Al Hydroxide/Mg Hydroxide 30 ml 07/17/17 15:48 Mylanta Oral Suspension - PO Q4H PRN DYSPEPSIA Amlodipine Besylate 10 mg 07/16/17 10:00 07/19/17 09:37 Norvasc - PO 10 mg DAILY DHEERAJ Administration Aspirin 325 mg 07/18/17 08:00 07/19/17 08:00 Asa - PO 325 mg DAILY@0800 DHEERAJ Administration Sodium Chloride 1,000 mls @ 125 mls/hr 07/19/17 20:44 07/19/17 21:18 Normal Saline - IV 125 mls/hr ASDIR DHEERAJ Administration Levothyroxine Sodium 100 mcg 07/16/17 07:00 07/20/17 06:15 Synthroid - PO 100 mcg DAILY@0700 DHEERAJ Administration Magnesium Hydroxide 30 ml 07/17/17 15:48 Milk Of Magnesia - PO DAILY PRN CONSTIPATION Montelukast Sodium 10 mg 07/15/17 22:00 07/19/17 21:18 Singulair - PO 10 mg HS DHEERAJ Administration Multivitamins/Minerals/Vitamin C 1 tab 07/18/17 10:00 07/19/17 09:37 Tab-A-Vit - PO 1 tab DAILY DHEERAJ Administration Nebivolol 10 mg 07/16/17 10:00 07/19/17 09:36 Bystolic - PO 10 mg DAILY DHEERAJ Administration Ondansetron HCl 4 mg 07/16/17 14:00 Zofran - PO TID PRN NAUSEA Pantoprazole Sodium 40 mg 07/18/17 10:00 07/19/17 09:37 Protonix - PO 40 mg DAILY DHEERAJ Administration Senna/Docusate Sodium 1 tablet 07/17/17 22:00 07/19/17 21:18 Pericolace - PO 1 tablet BID DHEERAJ Administration Valsartan 160 mg 07/16/17 10:00 07/19/17 09:36 Diovan - PO 160 mg DAILY DHEERAJ Administration IMAGING CT RLE: periprosthetic complete fractures in the posterior wall of the right acetabulum with no displacement, mildly displaced fracture through the right femoral diaphysis ASSESSMENT/PLAN Right total hip replacement 07/08 Periprosthetic femur fracture s/p revised right total hip replacement, proximal femur ORIF 07/17 --pain well-managed --incentive spirometer Leukocytotis --WBC slowly trending down, remains afebrile --CXR negative, UA negative --likely post-surgical inflammatory response v. atelectasis; no antibiotics for now; encourage IS Hypertension --BP stable --continue valsartan, Bystolic, amlodipine Hypothyroidism --TSH wnl --continue levothyroxine Hyponatremia --slowly correcting with gentle IV fluids, continue FEN Fluids: NS @ 75mL/hr Electrolytes: replete as indicated Nutrition: regular diet DVT Prophylaxis: SCDs, full dose daily ASA Dispo: continues to require inpatient care; plan is to go to [facility] for short term rehab on 07/21/17. Full code. Visit type - Emergency Visit Emergency Visit: Yes ED Registration Date: 07/15/17 Care time: The patient presented to the Emergency Department on the above date and was hospitalized for further evaluation of their emergent condition. - New Patient This patient is new to me today: No - Critical Care Critical Care patient: No
[2017-07-20] MEDS: VALSARTAN 160 MG TABLET (UD) PO SCH (09:40)
[2017-07-20] MEDS: NEBIVOLOL 10 MG TABLET (FP) PO SCH (09:40)
[2017-07-20] MEDS: SENNOSIDES/DOCUSATE COMBO (SENNA PLUS) TABLET (UD) PO SCH ×2 (09:41→22:09)
[2017-07-20] MEDS: MULTIVITAMINS (DAILY MVI) TABLET (FP) PO SCH (09:41)
[2017-07-20] MEDS: PANTOPRAZOLE 40 MG TABLET (FP) PO SCH (09:41)
[2017-07-20] MEDS: amLODIPine BESYLATE 10 MG TABLET (FP) PO SCH (09:41)
[2017-07-20 10:11] LABS: ANION GAP 10 (8-16); BLOOD UREA NITROGEN 15 mg/dl (7-18); CALCIUM 7.5 mg/dl (8.4-10.2); CHLORIDE 97 mmol/L (98-107); CO2 24 mmol/L (22-28); CREATININE 0.7 mg/dl (0.6-1.3); GLUCOSE,RANDOM 63 mg/dl (74-106); POTASSIUM 3.5 mmol/L (3.5-5.1); SODIUM 131 mmol/L (136-145)
[2017-07-20] MEDS: SODIUM CHLORIDE 1,000 ML IV SCH (19:47)
[2017-07-20] MEDS: MONTELUKAST NA 10 MG TABLET PO SCH (21:11)
[2017-07-21] MEDS: ACETAMINOPHEN 325 MG TABLET (FP) PO PRN ×2 (05:27→09:10)
[2017-07-21] MEDS: LEVOTHYROXINE NA 100 MCG TABLET (FP) PO SCH (06:17)
[2017-07-21 08:53] LABS: BASO % 0.2 % (0-2.0); EOS % 0.6 % (0-4.5); HEMATOCRIT 27.7 % (32.4-45.2); LYMPH % 8.3 % (8-40); MCH 28.7 pg (25.7-33.7); MCHC 32.7 g/dl (32.0-36.0); MEAN PLT VOLUME 7.9 fl (7.5-11.1); MONO % 7.9 % (3.8-10.2); PLATELET COUNT 439 K/MM3 (134-434); RBC 3.15 M/mm3 (3.60-5.2); RDW 14.2 % (11.6-15.6); WHITE BLOOD COUNT 12.6 K/mm3 (4.0-10.8)
[2017-07-21] MEDS: ASPIRIN 325 MG TABLET PO SCH (09:00)
[2017-07-21 09:06] LABS: ALBUMIN 1.9 g/dl (3.5-5.0); ALK PHOS 68 U/L (32-92); ANION GAP 10 (8-16); BILIRUBIN,TOTAL 0.9 mg/dl (0.2-1.0); BLOOD UREA NITROGEN 9 mg/dl (7-18); CALCIUM 7.7 mg/dl (8.4-10.2); CHLORIDE 98 mmol/L (98-107); CO2 26 mmol/L (22-28); CREATININE 0.6 mg/dl (0.6-1.3); GLUCOSE,RANDOM 93 mg/dl (74-106); MAGNESIUM 1.7 mg/dL (1.8-2.4); POTASSIUM 3.2 mmol/L (3.5-5.1); SGOT/AST 53 U/L (10-42); SGPT/ALT 44 U/L (10-40); SODIUM 134 mmol/L (136-145); TOT PROT 4.8 g/dl (6.4-8.3)
[2017-07-21] MEDS: SENNOSIDES/DOCUSATE COMBO (SENNA PLUS) TABLET (UD) PO SCH (09:09)
[2017-07-21] MEDS: PANTOPRAZOLE 40 MG TABLET (FP) PO SCH (09:10)
[2017-07-21] MEDS: NEBIVOLOL 10 MG TABLET (FP) PO SCH (09:10)
[2017-07-21] MEDS: VALSARTAN 160 MG TABLET (UD) PO SCH (09:10)
[2017-07-21] MEDS: MULTIVITAMINS (DAILY MVI) TABLET (FP) PO SCH (09:10)
[2017-07-21] MEDS: amLODIPine BESYLATE 10 MG TABLET (FP) PO SCH (09:10)
--- NOTE | 2017-07-21 09:29 | PATH ---
Surgical Pathology Report Patient Name: JITENDRA JIMENEZ Med. Rec. #: [id number] /Age/Gender: 1935 (Age: 81) / F Account: [id number] Location: [facility] Taken: 07/17/2017 Received: 07/17/2017 Reported: 07/21/2017 Physicians: Rishabh Sanchez M.D. Specimen(s) Received RIGHT HIP IMPLANT Clinical History Arthralgia of hip Final Diagnosis ORTHOPEDIC HARDWARE, RIGHT HIP, REPLACEMENT: HIP PROSTHESIS (GROSS ONLY). Electronically Signed Scottie Hale M.D. Gross Description Received fresh labeled "right hip implant," is an 18 cm in length abarca metallic hip implant. No soft tissue is present. No sections are submitted, gross only. 07/18/2017 [place]07/18/2017
[2017-07-21] MEDS ORDERED: MAGNESIUM SULFATE 2 GM in SODIUM CHLORIDE 100 ML IVPB ONE (09:32)
[2017-07-21] MEDS ORDERED: POTASSIUM CHLORIDE TABS 20 MEQ TABLET.ER (FP) PO ONE (09:45)
--- NOTE | 2017-07-21 09:45 | PN ---
Progress Note (short form) - Note Progress Note: Ortho Pt seen and examined s/p right revision THR, orif Selected Entries 07/21/17 05:55 Temperature 99.3 F Pulse Rate 79 Respiratory 20 Rate Blood Pressure 123/46 Laboratory Tests 07/21/17 07:00 WBC 12.6 H D Hgb 9.0 L Hct 27.7 L Plt Count 439 H dressing c/d/i, calf soft, nt nvi a/p PT TTWB dvt ppx pain control d/c planning
[2017-07-21] MEDS ORDERED: MAGNESIUM SULF 50% (8.12 MEQ/2 ML-1 GM VIAL) IVPB ONE (10:00)
--- NOTE | 2017-07-21 10:22 | DS ---
Physical Exam: SUBJECTIVE: Patient seen and examined, reports feeling well, denies any chest pain or shortness of breath, reports minimal pain to the right lower extremity. OBJECTIVE: This is a 81 y/o woman s/p right hip replacement (07/08/17). Who presents to the ED with right hip pain, non weight bearing. Patient reports since her surgery on 07/08, d/cd on 07/10. Patient reports having increased pain to her hip on 07/11 and it became progressively worse. She now reports being unable to ambulate and increased swelling to her right leg. ER course was notable for: (1) WBC 12.3 (2) Doppler RLE- neg DVT Vital Signs Period Temp Pulse Resp BP Sys/Gonzales Pulse Ox Last 24 Hr 98.5 F-99.3 F 79-83 18-20 123-132/46-49 95-97 PHYSICAL EXAM GENERAL: The patient is awake, alert, and fully oriented, in no acute distress. HEAD: Normal with no signs of trauma. EYES: PERRL, extraocular movements intact, sclera anicteric, conjunctiva clear. ENT: Ears normal, nares patent, oropharynx clear without exudates, moist mucous membranes. NECK: Trachea midline, full range of motion, supple. LUNGS: Breath sounds equal, clear to auscultation bilaterally, no wheezes, no crackles, no accessory muscle use. HEART: Regular rate and rhythm, S1, S2 without murmur, rub or gallop. ABDOMEN: Soft, nontender, nondistended, normoactive bowel sounds, no guarding, no rebound, no hepatosplenomegaly, no masses. EXTREMITIES: 2+ pulses, warm, well-perfused, no edema. NEUROLOGICAL: Cranial nerves II through XII grossly intact. Normal speech, gait not observed. PSYCH: Normal mood, normal affect. SKIN: Warm, dry, normal turgor, no rashes or lesions noted. LABS Laboratory Results - last 24 hr 07/21/17 07/21/17 07:00 07:00 WBC 12.6 H D RBC 3.15 L Hgb 9.0 L Hct 27.7 L MCV 88.0 MCH 28.7 MCHC 32.7 RDW 14.2 Plt Count 439 H MPV 7.9 Neutrophils % 83.0 H Lymphocytes % 8.3 Monocytes % 7.9 Eosinophils % 0.6 Basophils % 0.2 Sodium 134 L Potassium 3.2 L Chloride 98 Carbon Dioxide 26 Anion Gap 10 BUN 9 D Creatinine 0.6 Creat Clearance w eGFR > 60 Random Glucose 93 D Calcium 7.7 L Magnesium 1.7 L Total Bilirubin 0.9 AST 53 H D ALT 44 H D Alkaline Phosphatase 68 Total Protein 4.8 L Albumin 1.9 L D Microbiology 07/18/17 11:40 Urine - Urine - Catheterized Urine Culture - Final NO GROWTH OBTAINED IMAGING CT RLE: periprosthetic complete fractures in the posterior wall of the right acetabulum with no displacement, mildly displaced fracture through the right femoral diaphysis HOSPITAL COURSE: Patient was admitted from the emergency department for a right total hip replacement 07/08, periprosthetic femur fracture, s/p revised right total hip replacement, proximal femur ORIF 07/17, pain was well controlled with both narcotic and non narcotic pain medication. patient was noted to have leukocytosis, WBC slowly trending down, remains afebrile, CXR negative, UA negative, likely post-surgical inflammatory response v. atelectasis, no antibiotics noted. Blood pressure was well controlled on valsartan, Bystolic, and amlodipine. Levothyroxine continue throughout admission. hyponatremia improved after gentle IV hydration. PLAN - discharge to SNF for short term rehab Date of Admission:07/15/17 Date of Discharge: 07/21/17 Minutes to complete discharge: 45 Discharge Summary Reason For Visit: ARTHRALGIA OF HIP Current Active Problems DVT prophylaxis (Acute) HTN (hypertension) (Acute) Hip pain (Acute) Hypothyroid (Acute) Legal blindness (Acute) Condition: Stable - Instructions - Home Medications Comprehensive Discharge Medication List: Ambulatory Orders Amlodipine Besylate 10 mg PO DAILY 07/02/17 Levothyroxine [Synthroid -] 100 mcg PO ASDIR 07/02/17 Montelukast Sodium [Singulair] 10 mg PO DAILY 07/02/17 Nebivolol HCl [Bystolic] 10 mg PO DAILY 07/02/17 Valsartan 160 mg PO DAILY 07/02/17 Aspirin [ASA -] 325 mg PO DAILY@0800 tablet 07/08/17 Oxycodone HCl/Acetaminophen [Percocet 5-325 mg Tablet] 1 - 2 tab PO Q6H #50 tab MDD 8 07/08/17 - Discharge Referral Referred to [facility] No
[2017-07-21 11:16] VITALS: BP 154/61; PULSE 85; TEMP 98.6
== END 2017-07-21 13:19 | DRG 467 ==
LOC: FER 13:12 → FM/S 19:15
PROVIDERS: ADMIT Internal Medicine; ATTEND Nurse Practitioner Family
PROC: 0QS606Z Reposition Right Upper Femur with Intramedullary Internal Fixation Device, Open Approach (ICD-10-PCS; 2017-07-17)
PROC: 0SW90JZ Revision of Synthetic Substitute in Right Hip Joint, Open Approach (ICD-10-PCS; principal; 2017-07-17 16:30)
DX: M97.01XA Periprosthetic fracture around internal prosthetic right hip joint, initial encounter (principal); E87.1 Hypo-osmolality and hyponatremia; M96.661 Fracture of femur following insertion of orthopedic implant, joint prosthesis, or bone plate, right leg; I70.201 Unspecified atherosclerosis of native arteries of extremities, right leg; I10 Essential (primary) hypertension; E03.9 Hypothyroidism, unspecified; D72.829 Elevated white blood cell count, unspecified
CPT/HCPCS: 36415; 71045-TC; 73523-TC; 73701-TC-RT; 80048; 80053; 81003; 81015; 82550; 82570; 83735; 83930; 83935; 84100; 84300; 84443; 84484; 85025; 85027; 85610; 85730; 86850; 86900; 86901; 87086; 93005; 93971-TC; 94010; 97116-GP; 97162-GP; 99285-25

== ENCOUNTER 2017-08-19 09:56 | Inpatient (IN) | payer OTHER, MEDICARE ==
[2017-08-18 18:05] VITALS: BMI 28.4
[2017-08-19] MEDS ORDERED: ceFAZolin SODIUM 1 GM VIAL ONE ×2 (13:13→13:45)
[2017-08-19] MEDS ORDERED: VANCOMYCIN 1,000 MG VIAL (RESTRICTED TO ID ONLY) ONE (13:43)
[2017-08-19] MEDS ORDERED: MAGNESIUM HYDROX 2400MG/30ML ORAL SUSPENSION 30 ML CUP PO PRN (14:10)
[2017-08-19] MEDS ORDERED: ONDANSETRON 4 MG/2 ML VIAL IVPUSH PRN (14:10)
[2017-08-19] MEDS ORDERED: MAG HYDROX/AL HYDROX/SIMETH 30 ML UNIT-DOSE CUP PO PRN (14:10)
--- NOTE | 2017-08-19 14:10 | HP ---
Satellite H - Chief Complaint Chief Complaint: right hip pain, draining - Past Medical History Allergies/Adverse Reactions: Allergies Allergy/AdvReac Type Severity Reaction Status Date / Time Penicillins Allergy Rash Verified 08/18/17 18:12 Sulfa (Sulfonamide Allergy Rash Verified 08/18/17 18:12 Antibiotics) codeine AdvReac Vomiting Verified 08/18/17 18:12 - Current Medications Current Medications: Home Medications Medication Instructions Recorded Amlodipine Besylate 10 mg PO DAILY 07/02/17 Montelukast Sodium [Singulair] 10 mg PO DAILY 07/02/17 Nebivolol HCl [Bystolic] 10 mg PO DAILY 07/02/17 Valsartan 160 mg PO DAILY 07/02/17 Aspirin [ASA -] 325 mg PO DAILY@0800 tablet 07/08/17 Multivitamins [Multivit ([facility] 1 tab PO DAILY tab 07/21/17 Formulary)] Acetaminophen [Tylenol -] 1,000 mg PO Q6H PRN 08/18/17 Levothyroxine [Synthroid -] 112 mcg PO DAILY 08/18/17 Sennosides [Senna] 2 each PO HS 08/18/17 Oseltamivir Phosphate [Tamiflu] 75 mg PO BID 08/19/17 Satellite Physical Exam - Physical Examination Vital Signs: Vital Signs Period Temp Pulse Resp BP Sys/Gonzales Pulse Ox Last 24 Hr 98.6 F 96 20 133/65 General Appearance: Well Nourished, Well Developed, Alert & Oriented x3 ENT: Clear Lung: Normal air movement Heart: Regular rate & rhythm Extremities: Other (right hip- + drainage distal aspect of incision, nvi) Neurological: Intact, Alert, Oriented Satellite Impression/Plan - Impression/Plan Impression: right hip s/p revision THR, with nonhealing incision Operative Procedure: right hip I & D Date to be Performed: 08/19/17
--- NOTE | 2017-08-19 14:14 | OP ---
Operative Note - Note: Operative Date: 08/19/17 (magali) Pre-Operative Diagnosis: right hip non-healing wound, s/p thr Operation: right hip I & D Post-Operative Diagnosis: Same as Pre-op Surgeon: Rishabh Sanchez Skip Operator: Alberto Art Anesthesiologist/DIRECTOR OF ATHLETICS: Milton Urrutia Anesthesia: General Estimated Blood Loss (mls): 10 Operative Report Dictated: Yes
[2017-08-19] MEDS ORDERED: LACTATED RINGERS SOLUTION 1,000 ML IV SCH (14:15)
[2017-08-19] MEDS ORDERED: ONDANSETRON 4 MG/2 ML VIAL ONE (14:30)
--- NOTE | 2017-08-19 16:51 | OP ---
DATE OF OPERATION: 08/19/2017 PREOPERATIVE DIAGNOSIS: Persistent draining status post right total hip replacement. POSTOPERATIVE DIAGNOSIS: Persistent draining status post right total hip replacement. PROCEDURE: Irrigation and debridement, right thigh wound. SURGICAL ATTENDING: Rishabh Sanchez MD GLOBAL COMPENSATION MANAGER: LAURA Nolan ANESTHESIA: General with LMA. CLOSURE: No. 1 PDS for fascia and 2-0 nylon horizontal mattress for skin. ESTIMATED BLOOD LOSS: Less than 100 mL. COMPLICATIONS: None. CONDITION: To Recovery in stable condition. DESCRIPTION OF OPERATIVE PROCEDURE: Patient taken to the operating room on August 19, 2017. General with LMA was administered by the anesthesiologist. Antibiotics were held until after cultures were going to be obtained during the case. The patient was placed in lateral decubitus position with all prominences well padded. The right hip area was prepped and draped in the usual sterile fashion. The previous incision was utilized to gain access to the hip. Just the distal 1/2 of the incision was opened along the persistent draining sinus. The sinus was curetted down to the level of the fascia. The fascia was opened that amount of the incision. There was some persistent fluid but no purulence anywhere. Deep cultures were taken and sent to Microbiology for analysis. The hip was taken through a range of motion, found to have good stability. The deep layer was pulse-antibiotic irrigated with 6 L of antibiotic irrigation. The sinus tract was curetted and was debrided. Vancomycin powder was placed deep below the level of fascia. Fascia was then closed using No. 1 PDS suture, and 2-0 nylon horizontal mattress suture was used for skin. Sterile pressure dressing was applied. Patient awakened from anesthesia and transferred to Recovery in stable condition. Antibiotics were given once cultures were obtained. RISHABH SANCHEZ M.D. [id number]
[2017-08-19] MEDS: CEFAZOLIN 2 GM/D5W 2 GM/50 ML ML IVPB SCH (21:24)
[2017-08-19] MEDS: SENNOSIDES/DOCUSATE COMBO (SENNA PLUS) TABLET (UD) PO SCH (21:24)
[2017-08-19] MEDS: ACETAMINOPHEN 325 MG TABLET (FP) PO PRN (21:25)
[2017-08-19] MEDS: oxyCODONE HCL 5 MG TABLET PO PRN (21:25)
[2017-08-20] MEDS: CEFAZOLIN 2 GM/D5W 2 GM/50 ML ML IVPB SCH (04:45)
[2017-08-20] MEDS: oxyCODONE HCL 5 MG TABLET PO PRN (06:52)
[2017-08-20] MEDS: ACETAMINOPHEN 325 MG TABLET (FP) PO PRN (06:53)
[2017-08-20 08:43] LABS: HEMATOCRIT 26.2 % (32.4-45.2); HEMOGLOBIN 8.2 GM/dl (10.7-15.3); MCH 26.2 pg (25.7-33.7); MCHC 31.4 g/dl (32.0-36.0); MEAN CELL VOLUME 83.5 fl (80-96); MEAN PLT VOLUME 7.1 fl (7.5-11.1); PLATELET COUNT 392 K/MM3 (134-434); RBC 3.14 M/mm3 (3.60-5.2); RDW 15.6 % (11.6-15.6); WHITE BLOOD COUNT 7.1 K/mm3 (4.0-10.8)
--- NOTE | 2017-08-20 08:53 | PN ---
Progress Note (short form) - Note Progress Note: Ortho Pt seen and examined s/p right hip I & D pod #1 Selected Entries 08/20/17 06:00 Temperature 98.4 F Pulse Rate 76 Respiratory 18 Rate Blood Pressure 137/48 Laboratory Tests 08/20/17 07:58 WBC Pending Hgb Pending Hct Pending Plt Count Pending Dressing saturated, minimal ttp, good rom, nvi cultures pending a/p f/u wound cultures ID consult PT PWB with walker will follow
[2017-08-20] MEDS ORDERED: CEFEPIME HCL 1 GM VIAL (RESTRICTED TO ID) IVPB SCH (10:00)
[2017-08-20] MEDS: MULTIVITAMINS (DAILY MVI) TABLET (FP) PO SCH (10:03)
[2017-08-20] MEDS: SENNOSIDES/DOCUSATE COMBO (SENNA PLUS) TABLET (UD) PO SCH ×2 (10:03→21:12)
[2017-08-20] MEDS: PANTOPRAZOLE 40 MG TABLET (FP) PO SCH (10:06)
[2017-08-20] MEDS: CEFEPIME 1 GM/100 ML BAG PRE-DOCKED IVPB SCH ×2 (10:14→17:52)
--- NOTE | 2017-08-20 10:17 | CONS ---
INFECTIOUS DISEASE CONSULTATION DATE OF CONSULTATION: DATE OF DICTATION: 08/20/2017 REASON FOR CONSULTATION: The patient is an 81-year-old female who is evaluated for possible infected right hip prosthesis. HISTORY OF PRESENT ILLNESS: The patient underwent a right total hip replacement on July 08, 2017. Postoperatively, she was transferred to a [facility] facility for rehabilitation. She began to develop pain in the right hip associated with a nonhealing incision. She was readmitted to the hospital on July 15, 2017, with a periprosthetic fracture of the right hip. She underwent a revision on July 17, 2017. Patient reports developing drainage from the hip incision. She was re-evaluated and felt to have a nonhealing right hip surgical wound with drainage. She was readmitted to the hospital on August 19, 2017. An incision and drainage was performed. Cultures were obtained. She was empirically treated with cefazolin. Patient has no complaints of right hip pain at the present time. She denies any purulent wound drainage. No associated fever or chills. PAST MEDICAL HISTORY: Positive for hypertension and hypothyroidism. ALLERGIES: PENICILLIN, SULFA, and CODEINE. Patient reports developing a rash with PENICILLIN and SULFA. Denies history of anaphylactic reaction. MEDICATIONS: Include amlodipine, Singulair, Bystolic, aspirin, Synthroid. SOCIAL HISTORY: She lives in the community. She is a nonsmoker, nondrinker. SYSTEMS REVIEW: Neurologic: No loss of consciousness, seizure activity, focal weakness. Cardiac: Negative chest pain or palpitations. Respiratory: Negative cough or sputum production. Gastrointestinal: Negative vomiting or diarrhea. Genitourinary: Negative for urinary tract infection. LABORATORY DATA: White count 7.1, hematocrit 26.2, platelet count 392. BUN 9, creatinine 0.6. Urinalysis pending. Total bilirubin 0.9, alkaline phosphatase 68, AST 53, ALT 44. Cultures pending. PHYSICAL EXAMINATION: General: She is awake and alert. She is not acutely toxic appearing. Vital Signs: Temperature 98.4; blood pressure 137/48; pulse 76, regular; respirations 18 per minute. HEENT: Sclerae are anicteric. Left cornea opacified. Heart: Sounds S1, S2. Lungs: Clear. Abdomen: Soft. No tenderness elicited. No mass, rebound, or rigidity. Extremities: Lower extremity edema 2+. Right hip wound: No erythema or drainage. IMPRESSION: 1. Postoperative day number 1 incision and drainage right hip wound. 2. Status post revision of right hip periprosthetic fracture. 3. Status post right total hip replacement. 4. History of PENICILLIN and SULFA allergies. RECOMMENDATIONS: Await operative culture results. Obtain blood cultures. Empiric antibiotic coverage with vancomycin and cefepime pending culture results. Will follow. Thank you for the kind referral. SEBASTIÁN CORDERO M.D. [id number]
[2017-08-20] MEDS: VANCOMYCIN 1 GRAM (PRE-DOCKED) 1,000 MG/250 ML BAG IVPB SCH ×2 (10:35→21:13)
--- NOTE | 2017-08-20 11:22 | PN ---
Progress Note (short form) - Note Progress Note: 81F POD1 s/p I and D R hip under spinal anesthetic. Pt states that pain is well controlled. Reports no anesthetic complications. AVSS. Sensory and motor function intact in bilateral lower extremties. Continue current regimen.
[2017-08-21] MEDS: CEFEPIME 1 GM/100 ML BAG PRE-DOCKED IVPB SCH ×3 (01:04→18:01)
[2017-08-21 09:15] LABS: HEMATOCRIT 26.8 % (32.4-45.2); HEMOGLOBIN 8.4 GM/dl (10.7-15.3); MCHC 31.4 g/dl (32.0-36.0); MEAN CELL VOLUME 82.9 fl (80-96); MEAN PLT VOLUME 7.2 fl (7.5-11.1); PLATELET COUNT 411 K/MM3 (134-434); RBC 3.23 M/mm3 (3.60-5.2); RDW 15.8 % (11.6-15.6); WHITE BLOOD COUNT 6.9 K/mm3 (4.0-10.8)
[2017-08-21] MEDS: VANCOMYCIN 1 GRAM (PRE-DOCKED) 1,000 MG/250 ML BAG IVPB SCH ×3 (09:38→21:39)
[2017-08-21] MEDS: MULTIVITAMINS (DAILY MVI) TABLET (FP) PO SCH (09:38)
[2017-08-21] MEDS: PANTOPRAZOLE 40 MG TABLET (FP) PO SCH (09:38)
[2017-08-21] MEDS: SENNOSIDES/DOCUSATE COMBO (SENNA PLUS) TABLET (UD) PO SCH (09:38)
--- NOTE | 2017-08-21 09:59 | PN ---
Progress Note, Physician History of Present Illness: POD #2 OOB in chair No c/o R hip pain No fever/ chills Cultures pending Tolerating antibiotics - Current Medication List Current Medications: Active Medications Al Hydroxide/Mg Hydroxide (Mylanta Oral Suspension -) 30 ml PO Q4H PRN PRN Reason: DYSPEPSIA Cefepime HCl (Maxipime 1gm Ivpb Pre-Docked) 1 gm IVPB Q8H-IV DHEERAJ Last Admin: 08/21/17 09:38 Dose: 1 gm Fentanyl (Sublimaze Injection -) 50 mcg IVPUSH [id number] PRN PRN Reason: PAIN-PACU ORDER X 4 DOSES ONLY Last Admin: 08/19/17 14:45 Dose: 50 mcg Vancomycin HCl (Vancomycin (Pre-Docked)) 1,000 mg in 250 mls @ 166.667 mls/hr IVPB Q12H [facility] Last Admin: 08/21/17 09:38 Dose: 166.667 mls/hr Magnesium Hydroxide (Milk Of Magnesia -) 30 ml PO PRN PRN PRN Reason: CONSTIPATION Multivitamins/Minerals/Vitamin C (Tab-A-Vit -) 1 tab PO DAILY [facility] Last Admin: 08/21/17 09:38 Dose: 1 tab Ondansetron HCl (Zofran Injection) 4 mg IVPUSH Q6H PRN PRN Reason: NAUSEA Last Admin: 08/19/17 14:32 Dose: 4 mg Oxycodone HCl (Roxicodone -) 5 mg PO Q4H PRN PRN Reason: PAIN LEVEL 1-5 Last Admin: 08/20/17 06:52 Dose: 5 mg Pantoprazole Sodium (Protonix -) 40 mg PO DAILY [facility] Last Admin: 08/21/17 09:38 Dose: 40 mg Senna/Docusate Sodium (Pericolace -) 2 tablet PO BID [facility] Last Admin: 08/21/17 09:38 Dose: Not Given - Objective Vital Signs: Vital Signs Temperature 98.9 F 08/21/17 05:50 Pulse Rate 85 08/21/17 05:50 Respiratory Rate 18 08/21/17 05:50 Blood Pressure 135/76 08/21/17 05:50 O2 Sat by Pulse Oximetry (%) 97 08/21/17 08:27 Constitutional: Yes: No Distress Eyes: Yes: Conjunctiva Clear Cardiovascular: Yes: Regular Rate and Rhythm, S1, S2 Respiratory: Yes: CTA Bilaterally Gastrointestinal: Yes: Normal Bowel Sounds, Soft. No: Tenderness Extremities: Yes: Other (R hip wound no erythema/ drainage. + serosanguinous drainage on dressing) Labs: CBC, BMP 08/21/17 07:45 Assessment/Plan POD #2 I&D R THR S/P revision R THR Await cultures Continue empiric vancomycin/ cefepime
--- NOTE | 2017-08-21 11:39 | PN ---
Progress Note (short form) - Note Progress Note: AVSS COMFORTABLE INCISION WITH MINIMAL DRAINAGE CALF SOFT AND NT NVI IMP: DOING WELL PLAN: EMPIRIC ABX UNTIL CULTURE RESULTS RETURN, PT-WBAT
[2017-08-21] MEDS: OSELTAMIVIR PHOSPHATE 75 MG CAPSULE PO SCH (14:21)
[2017-08-21] MEDS: ACETAMINOPHEN 325 MG TABLET (FP) PO PRN (16:31)
[2017-08-21] MEDS: SENNOSIDES 8.6MG TABLET (FP) PO SCH (21:38)
[2017-08-21] MEDS: MONTELUKAST NA 10 MG TABLET PO SCH (21:38)
[2017-08-22] MEDS: CEFEPIME 1 GM/100 ML BAG PRE-DOCKED IVPB SCH ×3 (02:00→17:06)
[2017-08-22] MEDS: ACETAMINOPHEN 325 MG TABLET (FP) PO PRN ×2 (02:52→20:59)
[2017-08-22] MEDS: LEVOTHYROXINE NA 112 MCG TABLET (FP) PO SCH (06:23)
--- NOTE | 2017-08-22 09:59 | PN ---
Progress Note (short form) - Note Progress Note: Ortho Pt seen and examined s/p right hip I & D pod #3 Microbiology 08/19/17 Unknown Hip - Right Gram Stain - Final 08/19/17 Unknown Hip - Right Wound Culture - Preliminary Presumptive Mrsa (Pbp2a Pos) Presumptive Ps Aeruginosa Laboratory Tests 08/21/17 07:45 WBC 6.9 Hgb 8.4 L Hct 26.8 L Plt Count 411 less drainage today, minimal ttp, good rom, nvi a/p PICC line ABX as per ID PT,wbat dvt ppx pain control d/c planning
--- NOTE | 2017-08-22 10:08 | PN ---
Progress Note, Physician History of Present Illness: POD #3 OOB in chair No c/o R hip pain No fever/ chills Cultures prelim MRSA, Pseudomonas Tolerating antibiotics - Current Medication List Current Medications: Active Medications Acetaminophen (Tylenol -) 650 mg PO Q6H PRN PRN Reason: PAIN LEVEL 6-10 Last Admin: 08/22/17 02:52 Dose: 650 mg Al Hydroxide/Mg Hydroxide (Mylanta Oral Suspension -) 30 ml PO Q4H PRN PRN Reason: DYSPEPSIA Amlodipine Besylate (Norvasc -) 10 mg PO DAILY [facility] Cefepime HCl (Maxipime 1gm Ivpb Pre-Docked) 1 gm IVPB Q8H-IV DHEERAJ Last Admin: 08/22/17 02:00 Dose: 1 gm Vancomycin HCl (Vancomycin (Pre-Docked)) 1,000 mg in 250 mls @ 166.667 mls/hr IVPB Q12H [facility] Last Admin: 08/21/17 21:39 Dose: 166.667 mls/hr Levothyroxine Sodium (Synthroid -) 112 mcg PO DAILY@0700 [facility] Last Admin: 08/22/17 06:23 Dose: 112 mcg Magnesium Hydroxide (Milk Of Magnesia -) 30 ml PO PRN PRN PRN Reason: CONSTIPATION Montelukast Sodium (Singulair -) [address] [facility] Last Admin: 08/21/17 21:38 Dose: 10 mg Multivitamins/Minerals/Vitamin C (Tab-A-Vit -) 1 tab PO DAILY [facility] Last Admin: 08/21/17 09:38 Dose: 1 tab Nebivolol (Bystolic -) 10 mg PO DAILY [facility] Ondansetron HCl (Zofran Injection) 4 mg IVPUSH Q6H PRN PRN Reason: NAUSEA Last Admin: 08/19/17 14:32 Dose: 4 mg Oseltamivir Phosphate (Tamiflu -) 75 mg PO DAILY [facility] Stop: 08/26/17 13:44 Last Admin: 08/21/17 14:21 Dose: 75 mg Pantoprazole Sodium (Protonix -) 40 mg PO DAILY [facility] Last Admin: 08/21/17 09:38 Dose: 40 mg Senna (Senna -) 2 tab PO [facility] Last Admin: 08/21/17 21:38 Dose: Not Given Valsartan (Diovan -) 160 mg PO DAILY DHEERAJ - Objective Vital Signs: Vital Signs Temperature 98.5 F 08/22/17 03:00 Pulse Rate 85 08/22/17 03:00 Respiratory Rate 18 08/22/17 03:00 Blood Pressure 135/54 08/22/17 03:00 O2 Sat by Pulse Oximetry (%) 95 08/22/17 06:30 Constitutional: Yes: No Distress Eyes: Yes: Conjunctiva Clear Cardiovascular: Yes: Regular Rate and Rhythm Respiratory: Yes: CTA Bilaterally Gastrointestinal: Yes: Normal Bowel Sounds, Soft. No: Tenderness Extremities: Yes: Other (R hip wound no erythema/ drainage) Labs: CBC, BMP 08/21/17 07:45 Assessment/Plan POD # 3 I&D R THR S/P revision R THR Await final cultures Continue vancomycin/ cefepime PICC for outpatient antibiotics: Vancomycin 1gm IVPB q12h, cefepime 2gm IVPB q12h x6w Discussed with Dr Sanchez
[2017-08-22] MEDS: MULTIVITAMINS (DAILY MVI) TABLET (FP) PO SCH (10:30)
[2017-08-22] MEDS: NEBIVOLOL 10 MG TABLET (FP) PO SCH (10:30)
[2017-08-22] MEDS: VALSARTAN 160 MG TABLET (UD) PO SCH (10:30)
[2017-08-22] MEDS: OSELTAMIVIR PHOSPHATE 75 MG CAPSULE PO SCH (10:30)
[2017-08-22] MEDS: PANTOPRAZOLE 40 MG TABLET (FP) PO SCH (10:30)
[2017-08-22] MEDS: amLODIPine BESYLATE 10 MG TABLET (FP) PO SCH (10:31)
[2017-08-22] MEDS ORDERED: PICC LINE 8 ML FLUSH PROTOCOL IVPUSH PRN (11:02)
[2017-08-22] MEDS: VANCOMYCIN 1 GRAM (PRE-DOCKED) 1,000 MG/250 ML BAG IVPB SCH ×2 (11:19→23:03)
[2017-08-22 18:58] LABS: ANION GAP 5 (8-16); BLOOD UREA NITROGEN 6 mg/dl (7-18); CHLORIDE 101 mmol/L (98-107); CO2 27 mmol/L (22-28); CREATININE < 0.8 mg/dl (0.6-1.3); GLUCOSE,RANDOM 92 mg/dl (74-106); POTASSIUM 3.3 mmol/L (3.5-5.1); SODIUM 133 mmol/L (136-145)
[2017-08-22] MEDS: MONTELUKAST NA 10 MG TABLET PO SCH (20:59)
[2017-08-22] MEDS: SENNOSIDES 8.6MG TABLET (FP) PO SCH (21:00)
[2017-08-23] MEDS: PICC LINE 8 ML FLUSH PROTOCOL IVPUSH PRN ×2 (00:35→02:57)
[2017-08-23] MEDS: CEFEPIME 1 GM/100 ML BAG PRE-DOCKED IVPB SCH ×2 (01:30→10:03)
[2017-08-23] MEDS: LEVOTHYROXINE NA 112 MCG TABLET (FP) PO SCH (06:34)
[2017-08-23] MEDS: OSELTAMIVIR PHOSPHATE 75 MG CAPSULE PO SCH (10:03)
[2017-08-23] MEDS: VALSARTAN 160 MG TABLET (UD) PO SCH (10:03)
[2017-08-23] MEDS: MULTIVITAMINS (DAILY MVI) TABLET (FP) PO SCH (10:03)
[2017-08-23] MEDS: amLODIPine BESYLATE 10 MG TABLET (FP) PO SCH (10:03)
[2017-08-23] MEDS: PANTOPRAZOLE 40 MG TABLET (FP) PO SCH (10:04)
[2017-08-23] MEDS: NEBIVOLOL 10 MG TABLET (FP) PO SCH (10:04)
[2017-08-23 10:08] VITALS: BP 129/55; PULSE 94; TEMP 98.8
[2017-08-23] MEDS: VANCOMYCIN 1 GRAM (PRE-DOCKED) 1,000 MG/250 ML BAG IVPB SCH (11:19)
[2017-08-23] MEDS: ACETAMINOPHEN 325 MG TABLET (FP) PO PRN (13:22)
== END 2017-08-23 13:30 | DRG 857 ==
LOC: FM/S 09:56
PROVIDERS: ADMIT Orthopaedic Surgery; ATTEND Orthopaedic Surgery
PROC: 3E10X8Z Irrigation of Skin and Mucous Membranes using Irrigating Substance (ICD-10-PCS; 2017-08-19)
PROC: 0JBL0ZZ Excision of Right Upper Leg Subcutaneous Tissue and Fascia, Open Approach (ICD-10-PCS; principal; 2017-08-19 13:39)
PROC: 02HV33Z Insertion of Infusion Device into Superior Vena Cava, Percutaneous Approach (ICD-10-PCS; 2017-08-22)
PROC: B518ZZA Fluoroscopy of Superior Vena Cava, Guidance (ICD-10-PCS; 2017-08-22)
DX: T81.4XXA Infection following a procedure, initial encounter (principal); E87.1 Hypo-osmolality and hyponatremia; B95.62 Methicillin resistant Staphylococcus aureus infection as the cause of diseases classified elsewhere
CPT/HCPCS: 36415; 36569; 77001-TC-FY; 80048; 85027; 85651; 86140; 87040; 87070; 87077; 87086; 87186; 87205; 94010; 94760; 97116-GP; 97161-GP; C1751; G0480